=== PATIENT | female | born 1975 | race Hispanic/Latino ===

== ENCOUNTER 2021-08-30 10:26 | Emergency (ER) | payer SELFPAY ==
--- OUTSIDE RECORDS SUMMARY | 2021-08-30 10:29 | XMS REPORT | Continuity of Care Document ---
:1975 Author Organization [facility] t Address [address] [place] [address] Care Team Providers Name Role Phone PCP, PATIENT DOES NOT HAVE A Primary Care Physician UnavailCharles Broderick Attending Clinician Unavailable Antonio JARRELL S Attending Clinician Doctor Unassigned, Name Attending Clinician Unavailable Charles CAMACHO Attending Clinician Unavailable Charles AUSTIN Admitting Clinician Unavailable Payers Payer Name Policy Type Policy Number Effective Date Expiration Date S ource Problems Condition Condition Condition Status Onset Resolution Last Treating Co mments Source Name Details Category Date Date Treatment Clinician Date No known No known Disease Unive rs active active ity of problems problems [facility] Allergies, Adverse Reactions, Alerts Allergy Allergy Status Severity Reaction(s) Onset Inactive Treating Comm ents Source Name Type Date Date Clinician NO KNOWN Drug Active Univers ALLERGIE Class ity of S [facility] Social History Social Habit Start Date Stop Date Quantity Comments Source Exposure to Not sure [facility] SARS-CoV-2 (event) Medica l Branch Sex Assigned At [birth year] [facility] 00:00:00 00:00:00 [facility] Smoking Status Start Date Stop Date Source Unknown if ever smoked [facility] Medications Ordered Filled Start Stop Current Ordering Indication Dosage Frequency Signature Comments Components Source Medication Medication Date Date Medication? Clinician (SIG) Name Name levoFLOXaci 2020-09- No 500mg 500 mg, U nivers n 2-14 12-14 Oral, ity of (LEVAQUIN) 13:30: 12:38 ONCE, 1 Benny as tablet 500 00 :00 dose, On Medic al mg [facility] 08/16/21 at 0730, KENDAL
Re ason for Anti-Infec tive: Documented Infection< br>Documen twila Infection Site: Urine
D uration of Therapy: Other (see Comments) FENTanyl PF 2020-09- No 50ug 50 mcg, Un corie (SUBLIMAZE 2-14 -14 Slow IV ity o f (PF)) 09:22: 09:34 Push, [place] injection 00 :00 ONCE, 1 Medical 50 mcg dose, On Sun08/16/21 at 0330, STAT methocarbam 2020-09- No 500mg 500 mg, U nivers oL 2-14 -14 Oral, ONCE ity of (ROBAXIN) 09:22: 09:34 NOW, 1 [place] tablet 500 00 :00 dose, On Medic al mg [facility] 08/16/21 at 0330, Routine FENTanyl PF 2020-09- No 50ug 50 mcg, Un corie (SUBLIMAZE 2-14 -14 Slow IV ity o f (PF)) 08:15: 08:14 Push, [place] injection 00 :00 ONCE, 1 Medical 50 mcg dose, On [place] 08/16/21 at 0215, STAT ondansetron 2020-09- No 4mg 4 mg, Slow Univers (ZOFRAN -16 08- IV Push, ity of (PF)) 08:06: 08:09 ONCE, 1 [place] injection 4 00 :00 dose, On Medi nilda mg [facility] 08/16/21 at 0215, KENDAL levoFLOXaci 2020-09 Yes [id number] 500mg Take 1 Univers n 2-14 tablet by ity of (LEVAQUIN) 00:00: mouth [place] 500 mg 00 every 24 Medical tablet (twenty-fo Branch ur) hours. methocarbam 2020-09 Yes [id number] 750mg Take 1 Univers oL 750 mg 2-14 tablet by ity o f tablet 00:00: mouth [place] 00 every 6 Medical (six) Branch hours as needed for Pain (scale 7-10). naproxen 2020-09 Yes [id number] 550mg Take 1 U nivers sodium 550 2-14 tablet by ity of mg tablet 00:00: mouth 2 00 (two) Medical times Branch daily with meals. dicyclomine 0 Yes [id number] 20mg Take 1 Univers 20 mg 6-26 tablet by ity of tablet 00:00: mouth 4 (four) Medical times Branch daily as needed for Abdominal pain. dicyclomine 0 Yes [id number] 20mg Take 1 Univers 20 mg 6-26 tablet by ity of tablet 00:00: mouth 4 (four) Medical times Branch daily as needed for Abdominal pain. cyclobenzap Yes 5mg Take 1 Univ ers rine 5 mg 3-08 tablet by ity o f tablet 00:00: mouth 3 (three) Medical times Branch daily as needed for Muscle Spasms for up to 20 doses. ibuprofen Yes 400mg Take 2 Unive rs (MOTRIN IB) 3-08 tablets by it y of 200 mg 00:00: mouth [place] tablet 00 every 6 Medical (six) Branch hours as needed for Pain (scale 1-3) for up to 30 doses. cyclobenzap Yes 5mg Take 1 Univ ers rine 5 mg 3-08 tablet by ity o f tablet 00:00: mouth 3 (three) Medical times Branch daily as needed for Muscle Spasms for up to 20 doses. ibuprofen Yes 400mg Take 2 Unive rs (MOTRIN IB) 3-08 tablets by it y of 200 mg 00:00: mouth [place] tablet 00 every 6 Medical (six) Branch hours as needed for Pain (scale 1-3) for up to 30 doses. hydrocortis Yes 4[drp] Place 4 U nivers one-acetic 7-13 Drops in ity o f acid 00:00: left ear 4 [place] (VOSOL-HC) 00 (four) Medical 1-2 % otic times Branch drops daily. hydrocortis Yes 4[drp] Place 4 U nivers one-acetic 7-13 Drops in ity o f acid 00:00: left ear 4 [place] (VOSOL-HC) 00 (four) Medical 1-2 % otic times Branch drops daily. Immunizations Ordered Filled Immunization Date Status Comments Sourc e Immunization Name Name SARS-COV-2 COVID-19 2020-11-28 Completed Unive rsity of MODERNA VACCINE 00:00:00 [facility] SARS-COV-2 COVID-19 2020-11-28 Completed Unive rsity of MODERNA VACCINE 00:00:00 [facility] SARS-COV-2 COVID-19 2020-10-31 Completed Unive rsity of MODERNA VACCINE 00:00:00 [facility] SARS-COV-2 COVID-19 2020-10-31 Completed Unive rsity of MODERNA VACCINE 00:00:00 [facility] Vital Signs Vital Name Observation Time Observation Value Comments Source Systolic blood 2021-08-16 12:00:00 137 mm[Hg] Univer sity of pressure [facility] Diastolic blood 2021-08-16 12:00:00 81 mm[Hg] Unive rsity of pressure [facility] Heart rate 2021-08-16 12:00:00 81 /min [facility] Respiratory rate 2021-08-16 12:00:00 16 /min [facility] Oxygen saturation in 2021-08-16 12:00:00 97 /min [facility] Arterial blood by [facility] Pulse oximetry Branch Body temperature 2021-08-16 07:52:00 37.28 Lara [facility] Body height 2021-08-16 07:52:00 152.4 cm [facility] Body weight 2021-08-16 07:52:00 95.255 kg [facility] BMI 2021-08-16 07:52:00 41.01 kg/m2 [facility] Procedures Procedure Date / Time Performed Performing Clinician Sourc e URINALYSIS 2021-08-16 11:02:00 George Austin [facility] CT ABDOMEN PELVIS WO 2021-08-16 10:38:00 George Austin [facility] NOTICE OF PRIVACY 2021-08-16 07:43:59 Doctor Unassigned, No Univ [facility] PRACTICES Name Medical Branch CONSENT/REFUSAL FOR 2021-08-16 07:43:37 Doctor Unassigned, [facility] AND Name Medical Branch TREATMENT Encounters Start End Encounter Admission Attending Care Care Encounter Source Date/Time Date/Time Type Type Clinicians Facility Department ID 2021-08-16 2021-08-16 Emergency X ANTONIO [facility] ERT [id number] Univers 01:54:00 06:44:00 GEORGE ity [facility] 2021-08-16 2021-08-16 Emergency Parvinsuraj [facility] [id number] Univers 01:54:00 06:44:00 George LOVE [id number] ity of [place] [id number] [facility] [id number] [facility] 084 Branch 2021-08-16 2021-08-16 Orders Doctor KEV [id number] Univers 00:00:00 00:00:00 Only Unassigned, BUCK [id number] ity of [place] [facility] [id number] [facility] [id number] [facility] 009 Branch 2020-02-26 2020-02-26 Emergency X JANICE [facility] ERT [id number] Univers 23:22:53 23:22:53 YARITZA lord [facility] Results This patient has no known results.
[2021-08-30 13:23] LABS: SARS-COV-2 RT PCR POSITIVE (NEGATIVE)
--- NOTE | 2021-08-30 14:44 | EDPHYS ---
Physician Documentation [facility] Name: Tere Loving Age: 45 yrs Sex: Female : 1975 Arrival Date: 08/30/2021 Time: : Bed Waiting Private MD: ED Physician Historical: - Allergies: 08/30 11:31 No Known Allergies; [facility] - Home Meds: 11:31 None [Active]; [facility] - PMHx: 11:31 None; [facility] - Immunization history:: Adult Immunizations. - Social history:: Smoking status: Patient reports the use of cigarette tobacco products, denies chronic smoking, but will smoke occasionally. Vital Signs: 11:27 BP 156 / 102; Pulse 100; Resp 18; Temp 98.2; Pulse Ox 99% ; Weight 95.25 kg; Height 5 [facility] ft. 0 in. (152.40 cm); 11:27 Body Mass Index 41.01 (95.25 kg, 152.40 cm) [facility] MDM: 14:43 Patient medically screened. kb 08/30 10:58 Order name: Strep ll1 08/30 10:59 Order name: Group A Streptococcus Rapid Sc; Complete Time: 14:42 EDMS 08/30 11:52 Order name: COVID-19/FLU A+B (Document "Date of Onset" if Symptomatic) pm1 08/30 11:53 Order name: COVID-19/FLU A+B; Complete Time: 14:42 EDMS 08/30 13:14 Order name: Throat Culture EDMS Administered Medications: No medications were administered Disposition Summary: 08/30/21 14:51 Eloped Disposition: before being seen by provider [facility] Reason: wait time [facility] Signatures: Dispatcher [employer] EDMS Kierra Julian FNP-C FNP-Ckb Rees, Jessica RN RN [facility] Corrections: (The following items were deleted from the chart) 14:48 14:43 Home kb kb 14:48 14:43 Stable kb kb 14:48 14:43 Coronavirus infection, unspecified kb kb
--- NOTE | 2021-08-30 14:44 | ER ---
Nurse's Notes [facility] Name: Tere Loving Age: 45 yrs Sex: Female : 1975 Arrival Date: 08/30/2021 Time: : Bed Waiting Private MD: Diagnosis: Presentation: 08/30 11:27 Chief complaint: Patient states: flu like symptoms since Sunday; fever, cough, body jh5 aches, sore throat. Coronavirus screen: Vaccine status: Patient reports receiving the 2nd dose of the covid vaccine. Ebola Screen: Patient negative for fever greater than or equal to 101.5 degrees Fahrenheit, and additional compatible Ebola Virus Disease symptoms Patient denies exposure to infectious person. Patient denies travel to an Ebola-affected area in the 21 days before illness onset. Initial Sepsis Screen: Does the patient meet any 2 criteria? No. Patient's initial sepsis screen is negative. Does the patient have a suspected source of infection? No. Patient's initial sepsis screen is negative. Risk Assessment: Do you want to hurt yourself or someone else? Patient reports no desire to harm self or others. 11:27 Method Of Arrival: Ambulatory [facility] 11:27 Acuity: DONOVAN 3 [facility] Triage Assessment: 11:32 General: Appears in no apparent distress. uncomfortable, obese, Behavior is calm, 5 cooperative, appropriate for age. Historical: - Allergies: 11:31 No Known Allergies; [facility] - Home Meds: 11:31 None [Active]; [facility] - PMHx: 11:31 None; [facility] - Immunization history:: Adult Immunizations. - Social history:: Smoking status: Patient reports the use of cigarette tobacco products, denies chronic smoking, but will smoke occasionally. Screenin:32 Abuse screen: Denies threats or abuse. Denies injuries from another. Nutritional [facility] screening: No deficits noted. Tuberculosis screening: Vital Signs: 11:27 BP 156 / 102; Pulse 100; Resp 18; Temp 98.2; Pulse Ox 99% ; Weight 95.25 kg; Height 5 [facility] ft. 0 in. (152.40 cm); 11:27 Body Mass Index 41.01 (95.25 kg, 152.40 cm) [facility] ED Course: :28 Patient arrived in ED. mr 11:31 Triage completed. jh5 11:32 Arm band placed on right wrist. 5 14:51 Patient's name was called from ER lobby. No response. Unable to locate patient. Will jh5 disposition as left without being seen by a provider. Administered Medications: No medications were administered Outcome: 14:43 Discharge ordered by . kb 14:52 Patient left the ED. 5 Signatures: Kierra Julian, RAUL RAO-Elissa Gipson Jessica RN RN [facility]
[2021-08-30 14:56] VITALS: BP 156/102; TEMP 98.2; O2SAT 99
[2021-08-30 22:21] LABS: SARS-COV-2 RT PCR POSITIVE (NEGATIVE)
== END 2021-08-30 14:52 | disposition left against medical advice (07) ==
LOC: ER 10:26
DX: R50.9 Fever, unspecified (principal)
CPT/HCPCS: 0240U; 87070; 87081; 99281

== ENCOUNTER 2021-08-31 03:09 | Emergency (ER) | payer SELFPAY ==
--- OUTSIDE RECORDS SUMMARY | 2021-08-31 03:11 | XMS REPORT | Continuity of Care Document ---
:1975 Author Organization [facility] t Address [address] [place] [address] Care Team Providers Name Role Phone PCP, [...] rs active active ity of problems problems [facility] Allergies, Adverse Reactions, Alerts Allergy Allergy Status Severity Reaction(s) Onset Inactive Treating Comm ents Source Name Type Date Date Clinician NO KNOWN Drug Active Univers ALLERGIE Class ity of S [facility] Social History Social Habit Start Date Stop Date Quantity Comments Source Exposure to Not sure [facility] SARS-CoV-2 (event) Medica l Branch Sex Assigned At [address] [facility] 00:00:00 00:00:00 [facility] Smoking Status Start Date Stop Date Source Unknown if ever smoked [facility] Medications Ordered Filled Start Stop Current Ordering Indication Dosage Frequency Signature Comments Components Source Medication Medication Date Date Medication? Clinician (SIG) Name Name levoFLOXaci 2020-09- No 500mg 500 mg, U nivers n 2-14 12-14 Oral, ity of (LEVAQUIN) 13:30: 12:38 ONCE, 1 Benny as tablet 500 00 :00 dose, On Medic al mg [facility] 08/16/21 at 0730, KENDAL
Re ason for [...] 00 :00 dose, On Medic al mg [facility] 08/16/21 at 0330, Routine FENTanyl PF 2020-09- No 50ug 50 mcg, Un corie (SUBLIMAZE 2-14 -14 Slow IV ity o f (PF)) 08:15: 08:14 Push, [place] injection 00 :00 ONCE, 1 Medical 50 mcg dose, On [place] 08/16/21 at 0215, STAT ondansetron 2020-09- No 4mg 4 mg, Slow Univers (ZOFRAN -16 08- IV Push, ity of (PF)) 08:06: 08:09 ONCE, 1 [place] injection 4 00 :00 dose, On Medi nilda mg [facility] 08/16/21 at 0215, KENDAL levoFLOXaci 2020-09 Yes [id number] 500mg Take 1 Univers n 2-14 tablet by ity of (LEVAQUIN) 00:00: mouth [place] 500 mg 00 every 24 Medical tablet (twenty-fo Branch ur) hours. methocarbam 2020-09 Yes [id number] 750mg Take 1 Univers oL 750 mg 2-14 tablet by ity o f tablet 00:00: mouth [place] 00 every 6 Medical (six) Branch hours as needed for Pain (scale 7-10). naproxen 2020-09 Yes [id number] 550mg Take 1 U nivers sodium 550 2-14 tablet by ity of mg tablet 00:00: mouth 2 00 (two) Medical times Branch daily with meals. dicyclomine 0 Yes [id number] 20mg Take 1 Univers 20 mg 6-26 tablet by ity of tablet 00:00: mouth 4 (four) Medical times Branch daily as needed for Abdominal pain. dicyclomine 0 Yes [id number] 20mg Take 1 Univers 20 mg 6-26 [...] Completed Unive rsity of MODERNA VACCINE 00:00:00 [facility] SARS-COV-2 COVID-19 2020-11-28 Completed Unive rsity of MODERNA VACCINE 00:00:00 [facility] SARS-COV-2 COVID-19 2020-10-31 Completed Unive rsity of MODERNA VACCINE 00:00:00 [facility] SARS-COV-2 COVID-19 2020-10-31 Completed Unive rsity of MODERNA VACCINE 00:00:00 [facility] Vital Signs Vital Name Observation Time Observation Value Comments Source Systolic blood 2021-08-16 12:00:00 137 mm[Hg] Univer sity of pressure [facility] Diastolic blood 2021-08-16 12:00:00 81 mm[Hg] Unive rsity of pressure [facility] Heart rate 2021-08-16 12:00:00 81 /min [facility] Respiratory rate 2021-08-16 12:00:00 16 /min [facility] Oxygen saturation in 2021-08-16 12:00:00 97 /min [facility] Arterial blood by [facility] Pulse oximetry Branch Body temperature 2021-08-16 07:52:00 37.28 Lara [facility] Body height 2021-08-16 07:52:00 152.4 cm [facility] Body weight 2021-08-16 07:52:00 95.255 kg [facility] BMI 2021-08-16 07:52:00 41.01 kg/m2 [facility] Procedures Procedure Date / Time Performed Performing Clinician Sourc e URINALYSIS 2021-08-16 11:02:00 George Austin [facility] CT ABDOMEN PELVIS WO 2021-08-16 10:38:00 George Austin [facility] NOTICE OF PRIVACY 2021-08-16 07:43:59 Doctor Unassigned, No Univ [facility] PRACTICES Name Medical Branch CONSENT/REFUSAL FOR 2021-08-16 07:43:37 Doctor Unassigned, No [facility] DIAGNOSIS AND Name Medical Branch TREATMENT Encounters Start End Encounter Admission Attending Care Care Encounter Source Date/Time Date/Time Type Type Clinicians Facility Department ID 2021-08-16 2021-08-16 Emergency X ANTONIO [facility] ERT [id number] Univers 01:54:00 06:44:00 GEORGE ity [facility] 2021-08-16 2021-08-16 Emergency Parvinsuraj [facility] [id number] Univers 01:54:00 06:44:00 George LOVE [id number] ity of [place] [id number] [facility] [id number] [facility] 084 Branch 2021-08-16 2021-08-16 Orders Doctor KEV [id number] Univers 00:00:00 00:00:00 Only Unassigned, BUCK [id number] ity of [place] [facility] [id number] [facility] [id number] [facility] 009 Branch 2020-02-26 2020-02-26 Emergency X JANICE [facility] ERT [id number] Univers 23:22:53 23:22:53 YARITZA lord [facility] Results This patient has no known results.
--- NOTE | 2021-08-31 06:50 | ER ---
Nurse's Notes [facility] Name: Tere Loving Age: 45 yrs Sex: Female : 1975 Arrival Date: 08/31/2021 Time: 03:20 Bed 18 Private MD: Diagnosis: Acute pharyngitis, unspecified;SARS-associated coronavirus as the cause of diseases classified elsewhere Presentation: 08/31 03:39 Chief complaint: Patient states: was seen here yesterday and eloped but is back today bb for throat pain x 1 week pt is Covid positive. Coronavirus screen: Client reports previous positive COVID test result. Ebola Screen: No symptoms or risks identified at this time. Initial Sepsis Screen: Does the patient meet any 2 criteria? No. Patient's initial sepsis screen is negative. Does the patient have a suspected source of infection? No. Patient's initial sepsis screen is negative. Risk Assessment: Do you want to hurt yourself or someone else? Patient reports no desire to harm self or others. Onset of symptoms was August 26, 2021. 03:39 Method Of Arrival: Ambulatory bb 03:39 Acuity: DONOVAN 4 bb Triage Assessment: 03:41 General: Appears in no apparent distress. uncomfortable, Behavior is calm, cooperative. bb Pain: Complains of pain in throat. EENT: Reports pain in throat. Neuro: Level of Consciousness is awake, alert, obeys commands, Oriented to person, place, time, situation. Cardiovascular: Capillary refill < 3 seconds Patient's skin is warm and dry. Respiratory: Respiratory effort is even, unlabored, Respiratory pattern is regular. GI: No signs and/or symptoms were reported involving the gastrointestinal system. Derm: Skin is pink, warm \T\ dry. Musculoskeletal: Circulation, motion, and sensation intact. 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 Assessment: 07:13 Reassessment: The patient was prescribed lortab liquid. The med was held because she is sv1 driving. The patient is her family to drive her home. . Vital Signs: 03:39 BP 165 / 94; Pulse 93; Resp 18 S; Temp 98.1(O); Pulse Ox 100% on R/A; Weight 95.25 kg bb (R); Height 5 ft. 0 in. (152.40 cm) (R); Pain 10/10; 07:02 BP 142 / 115; Pulse 83; Resp 18; Pulse Ox 97% 0 lpm ; sv1 03:39 Body Mass Index 41.01 (95.25 kg, 152.40 cm) bb ED Course: 03:20 Patient arrived in ED. ja2 03:41 Triage completed. bb 03:41 Arm band placed on Patient placed in waiting room, Patient notified of wait time. bb 06:32 Tom Hayes PA is PHCP. cp 06:32 Jonathan Weaver MD is Attending Physician. cp 07:02 Roberto Lo, UDAY is Primary Nurse. sv1 08:02 Patient has correct armband on for positive identification. jl7 08:02 No provider procedures requiring assistance completed. Patient did not have IV access jl7 during this emergency room visit. Administered Medications: 07:12 Drug: Decadron (dexamethasone) 10 mg Route: IM; Site: right deltoid; sv1 07:38 Follow up: Response: No adverse reaction jg9 08:01 Drug: Lortab Liquid 15 ml Route: PO; jl7 08:02 Follow up: Response: Medication administered at discharge. jl7 Outcome: 06:49 Discharge ordered by . cp 08:02 Discharged to home ambulatory, with family. jl7 08:02 Condition: stable 08:02 Discharge instructions given to patient, Instructed on discharge instructions, follow up and referral plans. medication usage, Demonstrated understanding of instructions, follow-up care, medications, Prescriptions given X 3. 08:03 Patient left the ED. jl7 Signatures: Faby Lawrence RN RN bb Page, Corey, PA PA cp Leal, Jahala, RN RN jl7 Priya Gar Jennifer jg9 Roberto Lo, UDAY RN sv1
--- NOTE | 2021-08-31 06:50 | EDPHYS ---
Physician Documentation [facility] Name: Tere Loving Age: 45 yrs Sex: Female : 1975 Arrival Date: 08/31/2021 Time: 03:20 Bed 18 Private MD: ED Physician Jonathan Weaver HPI: 08/31 06:40 This 45 yrs old Female presents to ER via Ambulatory with complaints of Pain. cp 06:40 The patient presents with sore throat. cp 06:40 The patient describes throat pain as constant. Onset: The symptoms/episode cp began/occurred 1 week(s) ago. 06:40 Associated signs and symptoms: Pertinent positives: cough, Sore throat Pertinent cp negatives fever. 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 ROS: 06:40 ENT: Positive for ear pain, sore throat, Negative for drainage from ear(s), difficulty cp swallowing, difficulty handling secretions. 06:40 Cardiovascular: Negative for chest pain, edema, palpitations. 06:40 Respiratory: Positive for cough, with no reported sputum. 06:40 Abdomen/GI: Negative for abdominal pain, nausea, vomiting, and diarrhea. 06:40 Neuro: Negative for altered mental status, headache, weakness. Exam: 06:42 Head/Face: Normocephalic, atraumatic. cp 06:42 Constitutional: The patient appears in no acute distress, alert, awake, non-toxic, well developed, well nourished. 06:42 Eyes: Periorbital structures: appear normal, Conjunctiva: normal, no exudate, no injection, Sclera: no appreciated abnormality, Lids and lashes: appear normal, bilaterally. 06:42 ENT: External ear(s): are unremarkable, Ear canal(s): are normal, clear, TM's: bulging, on the left, dullness, bilaterally, Nose: is normal, Mouth: Lips: moist, Oral mucosa: moist, Posterior pharynx: Airway: no evidence of obstruction, patent, Tonsils: with erythema, no enlargement, no exudate, Uvula: midline, erythema, that is moderate, exudate, is not appreciated, Voice: is normal. 06:42 Neck: ROM/movement: is normal, is supple, no meningismus, no nuchal rigidity. 06:42 Chest/axilla: Inspection: normal. 06:42 Cardiovascular: Rate: normal. 06:42 Respiratory: the patient does not display signs of respiratory distress, Respirations: normal, no use of accessory muscles, no retractions, labored breathing, is not present, Breath sounds: are clear throughout, no decreased breath sounds, no stridor, no wheezing. Vital Signs: 03:39 BP 165 / 94; Pulse 93; Resp 18 S; Temp 98.1(O); Pulse Ox 100% on R/A; Weight 95.25 kg bb (R); Height 5 ft. 0 in. (152.40 cm) (R); Pain 10/10; 07:02 BP 142 / 115; Pulse 83; Resp 18; Pulse Ox 97% 0 lpm ; sv1 03:39 Body Mass Index 41.01 (95.25 kg, 152.40 cm) bb MDM: 06:45 Patient medically screened. cp 06:47 Differential diagnosis: bronchitis, group A strep tonsillitis, peritonsillar abscess cp pharyngitis, retropharyngeal abcess tonsillitis, uvulitis, viral syndrome. 06:49 Data reviewed: vital signs, nurses notes. cp 06:49 Counseling: I had a detailed discussion with the patient and/or guardian regarding: the cp historical points, exam findings, and any diagnostic results supporting the discharge/admit diagnosis, lab results, to return to the emergency department if symptoms worsen or persist or if there are any questions or concerns that arise at home. ED course: VS noted. Patient appears non-toxic and no signs of respiratory distress. Will discharge to home for continued monitoring. Administered Medications: 07:12 Drug: Decadron (dexamethasone) 10 mg Route: IM; Site: right deltoid; sv1 07:38 Follow up: Response: No adverse reaction [id number] 08:01 Drug: Lortab Liquid 15 ml Route: PO; jl7 08:02 Follow up: Response: Medication administered at discharge. [email or web address] Disposition: 07:00 Chart complete. cp Disposition Summary: 08/31/21 06:49 Discharge Ordered Location: Home cp Problem: new cp Symptoms: have improved cp Condition: Stable cp Diagnosis - Acute pharyngitis, unspecified cp - SARS-associated coronavirus as the cause of diseases classified elsewhere cp Followup: cp - With: Private Physician - When: 1 - 2 days - Reason: Worsening of condition Discharge Instructions: - Discharge Summary Sheet cp - Pharyngitis cp - COVID-19 cp - Things to Know about the COVID-19 Pandemic - [facility] [place] cp - 10 Things You Can Do to Manage Your COVID-19 Symptoms at Home - [facility] [place] cp - COVID-19: Quarantine vs. Isolation - [facility] [place] cp - Prevent the Spread of COVID-19 if You Are Sick - [facility] [place] cp Forms: - Medication Reconciliation Form cp - Thank You Letter cp - Antibiotic Education cp - Prescription Opioid Use cp Prescriptions: - Augmentin 875-125 mg Oral Tablet - take 1 tablet by ORAL route every 12 hours for 10 days; 20 tablet; Refills: 0, cp Product Selection Permitted - Tessalon Perles 100 mg Oral Capsule - take 1 capsule by ORAL route every 8 hours As needed; 2 capsule; Refills: 0, cp Product Selection Permitted - Lidocaine Viscous - take 5 milliliter by ORAL route every 4-6 hours As needed; 1 bottle; Refills: cp 0, Product Selection Permitted Addendum: 09/01/2021 20:29 Co-signature as Attending Physician, Jonathan Weaver MD. [facility] Signatures: Dispatcher [employer] EDMS Faby Lawrence RN RN bb Page, Corey, PA PA cp Nando Lennon RN RN [email or web address] Jonathan Weaver MD MD 7 Roberto Lo RN RN sv1 Corazon Delgado [email or web address] Corrections: (The following items were deleted from the chart) 08/31 06:42 06:40 Group A Streptococcus Rapid Sc ordered. EDMD EDMS
[2021-08-31] MEDS ORDERED: HYDROCOD 2.5mg-ACETAMIN 108mg/5mL Soln ONE ×2 (07:09→07:55)
[2021-08-31] MEDS ORDERED: dexAMETHasone 10 MG/ML VIAL ONE (07:09)
[2021-08-31 08:07] VITALS: TEMP 98.1
[2021-08-31 08:09] VITALS: BP 142/115; O2SAT 97
== END 2021-08-31 08:03 | disposition home or self-care (01) ==
LOC: ER 03:09
DX: U07.1 COVID-19 (principal); J02.9 Acute pharyngitis, unspecified
CPT/HCPCS: 96372; 99283; J1100

== ENCOUNTER 2024-06-09 20:45 | Emergency (ER) | payer SELFPAY ==
--- OUTSIDE RECORDS SUMMARY | 2024-06-09 20:50 | XMS REPORT | Continuity of Care Document ---
Author Name Unknown Address [address] [facility] [address] [place] [address] [facility] thconnect Address [address] [facility] [address] [place] [address] Care Team Providers Care Window Decorator Name Role Phone Becca Gutierrez Primary Care Physician [phone] BECCA HENRY Attending Clinician Unavailable LUCAS RIVERA Attending Clinician Unavailable LUCAS RIVERA Attending Clinician Unavailable Becca Gutierrez Attending Clinician [phone] Trinidad Jean Attending Clinician Unavailcandice garcia Doctor Unassigned, [place] Attending Clinician U navailable Lab, Ang - Db Attending Clinician Unavailable [facility] Attending Clinician Unavailable Cookie Bower MD Attending Clinician [phone] COOKIE BOWER Attending Clinician Unavailable COOKIE BOWER Attending Clinician Unavailable Pgy3 Attending Clinician Unavailable Pgy4 Attending Clinician Unavailable Susan Young Attending Clinician [phone] Becca Gutierrez Attending Clinician [phone] Trinidad Jean Attending Clinician UnavailRosa Maria Stephens RN Attending Clinician Unavailab DEBRA Brizuela Attending Clinician Unavailable Lab, Ang - Db Attending Clinician Unavailable Elissa Maldonado RN Attending Clinician [phone] SHAUN ESCOBAR Attending Clinician Unavailable Kate East Attending Clinician ARCADIO GEE Attending Clinician Patrizia vailable Doctor Unassigned, [place] Attending Clinician U navailable [facility] Attending Clinician Unavailable Polly Michel MD Attending Clinician POLLY MICHEL Attending Clinician Unavailable Pgy4 Attending Clinician Unavailable Margarita Tuttle Attending Clinician U navailable TADEO CASTRO Attending Clinician Unavail able Matthew WHTadeo SILVA Attending Clinician + Tammie Mcbride LVN Attending Clinician VILMA ESPINOZA Attending Clinician Unavaila Vilma Davis Attending Clinician [phone] Jessie Burch RN Attending Clinician [phone] CHERISE IVY Attending Clinician Unavailab Cherise Alvarez DO Attending Clinician [phone] GEORGE ALVAREZ Attending Clinician Unavailable George Alvarez MD Attending Clinician [phone] YARITZA CAMACHO Attending Clinician Unavailable TADEO CASTRO Admitting Clinician Unavail able GEORGE ALVAREZ Admitting Clinician Unavailable Payers Payer Name Policy Type Policy Number Effective Date Expirati on Date Source Problems Condition Name Condition Details Condition Category Status Onset Date Resolution Date Last Treatment Date Treating Clinician Comments Source Family history of rheumatoid arthritis Family history of rheumatoid arthritis Disease Active 05-01 00:00: 00 [facility] Polyarthra lgia Polyarthra lgia Disease Active 05-01 00:00: 00 [facility] Dysmenorrh ea, unspecifie d Dysmenorrh ea, unspecifie d Disease Active 2022-09 00:00: 00 [facility] Excessive or frequent menstruati on Excessive or frequent menstruati on Disease Active 2022-09 00:00: 00 [facility] Fibroid, uterine Fibroid, uterine Disease Active 2022-09 00:00: 00 [facility] HTN (hypertens ion) HTN (hypertens ion) Disease Active 2022-09 00:00: 00 [facility] Personal history of unspecifie d digestive disease Personal history of unspecifie d digestive disease Disease Active 2022-09 00:00: 00 [facility] Type 2 diabetes mellitus without complicati ons Type 2 diabetes mellitus without complicati ons Disease Active 2022-09 00:00: 00 [facility] Morbid obesity Morbid obesity Disease Active 2022-09 00:00: 00 [facility] Iron deficiency anemia, unspecifie d Iron deficiency anemia, unspecifie d Disease Active 2022-09 00:00: 00 [facility] No known active problems No known active problems Disease [facility] Allergies, Adverse Reactions, Alerts Allergy Name Allergy Type Status Severity Reaction(s) Onset Date Inactive Date Treating Clinician Comments Source NO KNOWN ALLERGIE S Drug Class Active [facility] Social History Social Habit Start Date Stop Date Quantity Comments Source Exposure to SARS-CoV-2 (event) Not sure [facility] History of tobacco use Cigarette Smoker [facility] Alcoholic beverage intake 2024-05-01 00:00:00 2024-05-01 00:00:00 Ex-drinker (finding) [facility] Tobacco use and exposure 2024-02-14 00:00:00 2024-02-14 00:00:00 Smokeless tobacco non-user [facility] Alcohol intake 2023-12-27 00:00:00 2023-12-27 00:00:00 Ex-drinker (finding) [facility] History of Social function 2023-11-06 00:00:00 2023-11-06 00:00:00 [facility] Sex assigned at 1975 00:00:00 1975 00:00:00 [facility] Smoking Status Start Date Stop Date Source Tobacco smoking consumption unknown [facility] Ex-smoker 2024-02-14 00:00:00 2024-02-14 00:00:00 [facility] Never smoked tobacco [facility] Medications Ordered Medication Name Filled Medication Name Start Date Stop Date Current Medication? Ordering Clinician Indication Dosage Frequency Signature (SIG) Comments Components Source naproxen 500 mg tablet 2023-09 0 00:00: 00 Yes [id number] 9101 500mg Take 1 tablet by mouth 2 (two) times daily as needed for Pain (scale 4-6). [facility] metFORMIN 500 mg tablet 9-19 00:00: 00 Yes [id number] 500mg Take 1 tablet by mouth in the morning and 1 tablet in the evening. Take with meals. [facility] losartan 100 mg tablet 05-01 00:00: 00 Yes [id number] 100mg Take 1 tablet by mouth in the morning. [facility] naproxen 500 mg tablet 05-01 00:00: 00 06-03 00:00 :00 No [id number] 9101 500mg Take 1 tablet by mouth 2 (two) times daily as needed for Pain (scale 4-6). [facility] methylPREDN ISolone 4 mg tablets 05-01 00:00: 00 05-08 04:59 :00 No [id number] 9101 Take by mouth SEE-INSTRU CTIONS for 6 days. follow package directions [facility] levonorgest reL (MIRENA) IUD 1 Device 04-22 22:30: 00 04-22 21:44 :00 No [id number] 1{devic e} 1 Device, Intrauteri ne, ONCE, 1 dose, On Sun04/22/24 at 1730, Routine [facility] traZODone 50 mg tablet 7- 00:00: 00 Yes [id number] 75mg Take 1.5 tablets by mouth at bedtime. [facility] gabapentin 100 mg capsule 6-13 00:00: 00 Yes [id number] 2 100mg Take 1 capsule by mouth in the morning and 1 capsule at noon and 1 capsule in the evening. [facility] metFORMIN 500 mg tablet 6-04 00:00: 00 05-22 00:00 :00 No [id number] 500mg Take 1 tablet by mouth in the morning and 1 tablet in the evening. Take with meals. [facility] rosuvastati n 10 mg tablet 6-03 00:00: 00 Yes [id number] 10mg Take 1 tablet by mouth at bedtime. [facility] losartan 100 mg tablet 5 00:00: 00 04-29 00:00 :00 No [id number] 100mg Take 1 tablet by mouth in the morning. [facility] SERTraline (ZOLOFT) 100 mg tablet 25 00:00: 00 Yes [id number] 100mg Take 1 tablet by mouth in the morning. [facility] traZODone 50 mg tablet 12-26 00:00: 00 03-26 00:00 :00 No [id number] 75mg Take 1.5 tablets by mouth at bedtime. [facility] traZODone 50 mg tablet 11-28 00:00: 00 Yes [id number] 50mg Take 1 tablet by mouth at bedtime as needed for Insomnia. [facility] SERTraline (ZOLOFT) 50 mg tablet 11-28 00:00: 00 12-26 00:00 :00 No [id number] 50mg Take 1 tablet by mouth in the morning. [facility] metFORMIN 500 mg tablet 18 00:00: 00 02-04 00:00 :00 No [id number] 500mg Take 1 tablet by mouth in the morning and 1 tablet in the evening. Take with meals. [facility] rosuvastati n 10 mg tablet 11-07 00:00: 00 02-01 00:00 :00 No [id number] 10mg Take 1 tablet by mouth at bedtime. [facility] medroxyPROG ESTERone (DEPO-PROVE RA) injection 150 mg 3-05 21:15: 00 04-22 21:44 :53 No [id number] 100 150mg [facility] losartan 100 mg tablet 10-11 00:00: 00 Yes [id number] 100mg Take 1 tablet by mouth in the morning. [facility] losartan 50 mg tablet 09-13 00:00: 00 10-11 00:00 :00 No [id number] 75mg Take 1.5 tablets by mouth in the morning. [facility] rosuvastati n 10 mg CpSP 2022-09 08:29: 56 08-16 00:00 :00 No [id number] Take by mouth. [facility] metFORMIN 500 mg tablet 2022-09 09:08: 29 08-09 00:00 :00 No 500mg Take 1 tablet by mouth in the morning and 1 tablet in the evening. Take with meals. [facility] rosuvastati n 10 mg CpSP 2022-09 08:29: 52 Yes [id number] Take by mouth. [facility] metFORMIN 500 mg tablet 2022-09 00:00: 00 11-18 00:00 :00 No [id number] 500mg Take 1 tablet by mouth in the morning and 1 tablet in the evening. Take with meals. [facility] rosuvastati n 10 mg tablet 2022-09 00:00: 00 11-07 00:00 :00 No [id number] 10mg Take 1 tablet by mouth at bedtime. [facility] losartan 50 mg tablet 2022-09 00:00: 00 09-13 00:00 :00 No [id number] 50mg Take 1 tablet by mouth in the morning. [facility] levoFLOXaci n (LEVAQUIN) tablet 500 mg 2020-09 13:30: 00 08-16 12:38 :00 No 500mg 500 mg, Oral, ONCE, 1 dose, On Sun08/16/21 at 0730, KENDAL
Re ason for Anti-Infec tive: Documented Infection< br>Documen twila Infection Site: Urine
D uration of Therapy: Other (see Comments) [facility] FENTanyl PF (SUBLIMAZE (PF)) injection 50 mcg 2020-09 09:22: 00 08-16 09:34 :00 No 50ug 50 mcg, Slow IV Push, ONCE, 1 dose, On Sun08/16/21 at 0330, STAT [facility] methocarbam oL (ROBAXIN) tablet 500 mg 2020-09 09:22: 00 08-16 09:34 :00 No 500mg 500 mg, Oral, ONCE NOW, 1 dose, On Sun08/16/21 at 0330, Routine [facility] FENTanyl PF (SUBLIMAZE (PF)) injection 50 mcg 2020-09 08:15: 00 08-16 08:14 :00 No 50ug 50 mcg, Slow IV Push, ONCE, 1 dose, On Sun08/16/21 at 0215, STAT [facility] ondansetron (ZOFRAN (PF)) injection 4 mg 2020-09 08:06: 00 08-16 08:09 :00 No 4mg 4 mg, Slow IV Push, ONCE, 1 dose, On Sun08/16/21 at 0215, KENDAL [facility] levoFLOXaci n (LEVAQUIN) 500 mg tablet 2020-09 00:00: 00 08-16 00:00 :00 No [id number] 500mg Take 1 tablet by mouth every 24 (twenty-fo ur) hours. [facility] methocarbam oL 750 mg tablet 2020-09 00:00: 00 08-16 00:00 :00 No [id number] 750mg Take 1 tablet by mouth every 6 (six) hours as needed for Pain (scale 7-10). [facility] naproxen sodium 550 mg tablet 2020-09 00:00: 00 08-16 00:00 :00 No [id number] 550mg Take 1 tablet by mouth 2 (two) times daily with meals. [facility] dicyclomine 20 mg tablet 02-26 00:00: 00 08-16 00:00 :00 No [id number] 20mg Take 1 tablet by mouth 4 (four) times daily as needed for Abdominal pain. [facility] ibuprofen (MOTRIN IB) 200 mg tablet 11-08 00:00: 00 08-16 00:00 :00 No 400mg Take 2 tablets by mouth every 6 (six) hours as needed for Pain (scale 1-3) for up to 30 doses. [facility] cyclobenzap rine 5 mg tablet 11-08 00:00: 00 08-16 00:00 :00 No 5mg Take 1 tablet by mouth 3 (three) times daily as needed for Muscle Spasms for up to 20 doses. [facility] hydrocortis one-acetic acid (VOSOL-HC) 1-2 % otic drops 03-15 00:00: 00 08-16 00:00 :00 No 4[drp] Place 4 Drops in left ear 4 (four) times daily. [facility] Immunizations Ordered Immunization Name Filled Immunization Name Date Status Comments Source Influenza Virus Vaccine Quad IM, Preserv and ABX Free 6 MO-64 YRS (FLUCELVAX) 2023-08-10 00:00:00 Completed [facility] TDAP 2023-08-10 00:00:00 Completed SARS-COV-2 COVID-19 MODERNA VACCINE 2020-11-28 00:00:00 Completed [facility] SARS-COV-2 COVID-19 MODERNA 12+ YRS VACCINE 2020-11-28 00:00:00 Completed SARS-COV-2 COVID-19 MODERNA VACCINE 2020-11-28 00:00:00 Completed [facility] SARS-COV-2 COVID-19 MODERNA VACCINE 2020-10-31 00:00:00 Completed [facility] SARS-COV-2 COVID-19 MODERNA 12+ YRS VACCINE 2020-10-31 00:00:00 Completed [facility] SARS-COV-2 COVID-19 MODERNA VACCINE 2020-10-31 00:00:00 Completed [facility] SARS-COV-2 COVID-19 MODERNA 12+ YRS VACCINE Unknown Completed [facility] Influenza Virus Vaccine Quad IM, Preserv and ABX Free 6 MO-64 YRS (FLUCELVAX) Unknown Completed [facility] TDAP Unknown Completed [facility] SARS-COV-2 COVID-19 MODERNA 12+ YRS VACCINE Unknown Completed [facility] Influenza Virus Vaccine Quad IM, Preserv and ABX Free 6 MO-64 YRS (FLUCELVAX) Unknown Completed [facility] TDAP Unknown Completed [facility] Influenza Virus Vaccine Quad IM, Preserv and ABX Free 6 MO-64 YRS (FLUCELVAX) Unknown Completed [facility] TDAP Unknown Completed [facility] Influenza Virus Vaccine Quad IM, Preserv and ABX Free 6 MO-64 YRS (FLUCELVAX) Unknown Completed [facility] TDAP Unknown Completed [facility] SARS-COV-2 COVID-19 MODERNA 12+ YRS VACCINE Unknown Completed [facility] SARS-COV-2 COVID-19 MODERNA 12+ YRS VACCINE Unknown Completed [facility] SARS-COV-2 COVID-19 MODERNA 12+ YRS VACCINE Unknown Completed [facility] Influenza Virus Vaccine Quad IM, Preserv and ABX Free 6 MO-64 YRS (FLUCELVAX) Unknown Completed [facility] TDAP Unknown Completed [facility] SARS-COV-2 COVID-19 MODERNA 12+ YRS VACCINE Unknown Completed [facility] Influenza Virus Vaccine Quad IM, Preserv and ABX Free 6 MO-64 YRS (FLUCELVAX) Unknown Completed [facility] TDAP Unknown Completed [facility] SARS-COV-2 COVID-19 MODERNA 12+ YRS VACCINE Unknown Completed [facility] Influenza Virus Vaccine Quad IM, Preserv and ABX Free 6 MO-64 YRS (FLUCELVAX) Unknown Completed [facility] TDAP Unknown Completed [facility] SARS-COV-2 COVID-19 MODERNA 12+ YRS VACCINE Unknown Completed [facility] Influenza Virus Vaccine Quad IM, Preserv and ABX Free 6 MO-64 YRS (FLUCELVAX) Unknown Completed [facility] TDAP Unknown Completed [facility] SARS-COV-2 COVID-19 MODERNA 12+ YRS VACCINE Unknown Completed [facility] Influenza Virus Vaccine Quad IM, Preserv and ABX Free 6 MO-64 YRS (FLUCELVAX) Unknown Completed [facility] TDAP Unknown Completed [facility] SARS-COV-2 COVID-19 MODERNA 12+ YRS VACCINE Unknown Completed [facility] Influenza Virus Vaccine Quad IM, Preserv and ABX Free 6 MO-64 YRS (FLUCELVAX) Unknown Completed [facility] TDAP Unknown Completed [facility] SARS-COV-2 COVID-19 MODERNA 12+ YRS VACCINE Unknown Completed [facility] Influenza Virus Vaccine Quad IM, Preserv and ABX Free 6 MO-64 YRS (FLUCELVAX) Unknown Completed [facility] TDAP Unknown Completed [facility] SARS-COV-2 COVID-19 MODERNA 12+ YRS VACCINE Unknown Completed [facility] Influenza Virus Vaccine Quad IM, Preserv and ABX Free 6 MO-64 YRS (FLUCELVAX) Unknown Completed [facility] TDAP Unknown Completed [facility] SARS-COV-2 COVID-19 MODERNA 12+ YRS VACCINE Unknown Completed [facility] Influenza Virus Vaccine Quad IM, Preserv and ABX Free 6 MO-64 YRS (FLUCELVAX) Unknown Completed [facility] TDAP Unknown Completed [facility] SARS-COV-2 COVID-19 MODERNA 12+ YRS VACCINE Unknown Completed [facility] Influenza Virus Vaccine Quad IM, Preserv and ABX Free 6 MO-64 YRS (FLUCELVAX) Unknown Completed [facility] TDAP Unknown Completed [facility] SARS-COV-2 COVID-19 MODERNA 12+ YRS VACCINE Unknown Completed [facility] Influenza Virus Vaccine Quad IM, Preserv and ABX Free 6 MO-64 YRS (FLUCELVAX) Unknown Completed [facility] TDAP Unknown Completed [facility] SARS-COV-2 COVID-19 MODERNA 12+ YRS VACCINE Unknown Completed [facility] Influenza Virus Vaccine Quad IM, Preserv and ABX Free 6 MO-64 YRS (FLUCELVAX) Unknown Completed [facility] TDAP Unknown Completed [facility] SARS-COV-2 COVID-19 MODERNA 12+ YRS VACCINE Unknown Completed [facility] Influenza Virus Vaccine Quad IM, Preserv and ABX Free 6 MO-64 YRS (FLUCELVAX) Unknown Completed [facility] TDAP Unknown Completed [facility] SARS-COV-2 COVID-19 MODERNA 12+ YRS VACCINE Unknown Completed [facility] Influenza Virus Vaccine Quad IM, Preserv and ABX Free 6 MO-64 YRS (FLUCELVAX) Unknown Completed [facility] TDAP Unknown Completed [facility] SARS-COV-2 COVID-19 MODERNA 12+ YRS VACCINE Unknown Completed [facility] Influenza Virus Vaccine Quad IM, Preserv and ABX Free 6 MO-64 YRS (FLUCELVAX) Unknown Completed [facility] TDAP Unknown Completed [facility] SARS-COV-2 COVID-19 MODERNA 12+ YRS VACCINE Unknown Completed [facility] Influenza Virus Vaccine Quad IM, Preserv and ABX Free 6 MO-64 YRS (FLUCELVAX) Unknown Completed [facility] TDAP Unknown Completed [facility] SARS-COV-2 COVID-19 MODERNA 12+ YRS VACCINE Unknown Completed [facility] Influenza Virus Vaccine Quad IM, Preserv and ABX Free 6 MO-64 YRS (FLUCELVAX) Unknown Completed [facility] TDAP Unknown Completed [facility] SARS-COV-2 COVID-19 MODERNA 12+ YRS VACCINE Unknown Completed [facility] Influenza Virus Vaccine Quad IM, Preserv and ABX Free 6 MO-64 YRS (FLUCELVAX) Unknown Completed [facility] TDAP Unknown Completed [facility] SARS-COV-2 COVID-19 MODERNA 12+ YRS VACCINE Unknown Completed [facility] Influenza Virus Vaccine Quad IM, Preserv and ABX Free 6 MO-64 YRS (FLUCELVAX) Unknown Completed [facility] TDAP Unknown Completed [facility] SARS-COV-2 COVID-19 MODERNA 12+ YRS VACCINE Unknown Completed [facility] Influenza Virus Vaccine Quad IM, Preserv and ABX Free 6 MO-64 YRS (FLUCELVAX) Unknown Completed [facility] TDAP Unknown Completed [facility] SARS-COV-2 COVID-19 MODERNA 12+ YRS VACCINE Unknown Completed [facility] Influenza Virus Vaccine Quad IM, Preserv and ABX Free 6 MO-64 YRS (FLUCELVAX) Unknown Completed [facility] TDAP Unknown Completed [facility] SARS-COV-2 COVID-19 MODERNA 12+ YRS VACCINE Unknown Completed [facility] Influenza Virus Vaccine Quad IM, Preserv and ABX Free 6 MO-64 YRS (FLUCELVAX) Unknown Completed [facility] TDAP Unknown Completed [facility] SARS-COV-2 COVID-19 MODERNA 12+ YRS VACCINE Unknown Completed [facility] Influenza Virus Vaccine Quad IM, Preserv and ABX Free 6 MO-64 YRS (FLUCELVAX) Unknown Completed [facility] TDAP Unknown Completed [facility] SARS-COV-2 COVID-19 MODERNA 12+ YRS VACCINE Unknown Completed [facility] Influenza Virus Vaccine Quad IM, Preserv and ABX Free 6 MO-64 YRS (FLUCELVAX) Unknown Completed [facility] TDAP Unknown Completed [facility] SARS-COV-2 COVID-19 MODERNA 12+ YRS VACCINE Unknown Completed [facility] Influenza Virus Vaccine Quad IM, Preserv and ABX Free 6 MO-64 YRS (FLUCELVAX) Unknown Completed [facility] TDAP Unknown Completed [facility] SARS-COV-2 COVID-19 MODERNA 12+ YRS VACCINE Unknown Completed [facility] Influenza Virus Vaccine Quad IM, Preserv and ABX Free 6 MO-64 YRS (FLUCELVAX) Unknown Completed [facility] TDAP Unknown Completed [facility] SARS-COV-2 COVID-19 MODERNA 12+ YRS VACCINE Unknown Completed [facility] Influenza Virus Vaccine Quad IM, Preserv and ABX Free 6 MO-64 YRS (FLUCELVAX) Unknown Completed [facility] TDAP Unknown Completed [facility] SARS-COV-2 COVID-19 MODERNA 12+ YRS VACCINE Unknown Completed [facility] SARS-COV-2 COVID-19 MODERNA 12+ YRS VACCINE Unknown Completed [facility] SARS-COV-2 COVID-19 MODERNA 12+ YRS VACCINE Unknown Completed [facility] SARS-COV-2 COVID-19 MODERNA 12+ YRS VACCINE Unknown Completed [facility] SARS-COV-2 COVID-19 MODERNA 12+ YRS VACCINE Unknown Completed [facility] SARS-COV-2 COVID-19 MODERNA 12+ YRS VACCINE Unknown Completed [facility] SARS-COV-2 COVID-19 MODERNA 12+ YRS VACCINE Unknown Completed [facility] SARS-COV-2 COVID-19 MODERNA 12+ YRS VACCINE Unknown Completed [facility] SARS-COV-2 COVID-19 MODERNA 12+ YRS VACCINE Unknown Completed [facility] SARS-COV-2 COVID-19 MODERNA 12+ YRS VACCINE Unknown Completed [facility] SARS-COV-2 COVID-19 MODERNA 12+ YRS VACCINE Unknown Completed [facility] SARS-COV-2 COVID-19 MODERNA 12+ YRS VACCINE Unknown Completed [facility] SARS-COV-2 COVID-19 MODERNA 12+ YRS VACCINE Unknown Completed [facility] SARS-COV-2 COVID-19 MODERNA 12+ YRS VACCINE Unknown Completed [facility] SARS-COV-2 COVID-19 MODERNA 12+ YRS VACCINE Unknown Completed [facility] SARS-COV-2 COVID-19 MODERNA 12+ YRS VACCINE Unknown Completed [facility] SARS-COV-2 COVID-19 MODERNA 12+ YRS VACCINE Unknown Completed [facility] SARS-COV-2 COVID-19 MODERNA 12+ YRS VACCINE Unknown Completed [facility] SARS-COV-2 COVID-19 MODERNA 12+ YRS VACCINE Unknown Completed [facility] SARS-COV-2 COVID-19 MODERNA 12+ YRS VACCINE Unknown Completed [facility] Influenza Virus Vaccine Quad IM, Preserv and ABX Free 6 MO-64 YRS (FLUCELVAX) Unknown Completed [facility] TDAP Unknown Completed [facility] SARS-COV-2 COVID-19 MODERNA 12+ YRS VACCINE Unknown Completed [facility] Influenza Virus Vaccine Quad IM, Preserv and ABX Free 6 MO-64 YRS (FLUCELVAX) Unknown Completed [facility] TDAP Unknown Completed [facility] SARS-COV-2 COVID-19 MODERNA 12+ YRS VACCINE Unknown Completed [facility] Influenza Virus Vaccine Quad IM, Preserv and ABX Free 6 MO-64 YRS (FLUCELVAX) Unknown Completed [facility] TDAP Unknown Completed [facility] SARS-COV-2 COVID-19 MODERNA 12+ YRS VACCINE Unknown Completed [facility] Influenza Virus Vaccine Quad IM, Preserv and ABX Free 6 MO-64 YRS (FLUCELVAX) Unknown Completed [facility] TDAP Unknown Completed [facility] SARS-COV-2 COVID-19 MODERNA 12+ YRS VACCINE Unknown Completed [facility] Influenza Virus Vaccine Quad IM, Preserv and ABX Free 6 MO-64 YRS (FLUCELVAX) Unknown Completed [facility] TDAP Unknown Completed [facility] SARS-COV-2 COVID-19 MODERNA 12+ YRS VACCINE Unknown Completed [facility] Influenza Virus Vaccine Quad IM, Preserv and ABX Free 6 MO-64 YRS (FLUCELVAX) Unknown Completed [facility] TDAP Unknown Completed [facility] SARS-COV-2 COVID-19 MODERNA 12+ YRS VACCINE Unknown Completed [facility] Influenza Virus Vaccine Quad IM, Preserv and ABX Free 6 MO-64 YRS (FLUCELVAX) Unknown Completed [facility] [facility] Completed [facility] SARS-COV-2 COVID-19 MODERNA 12+ YRS VACCINE Unknown Completed [facility] Influenza Virus Vaccine Quad IM, Preserv and ABX Free 6 MO-64 YRS (FLUCELVAX) Unknown Completed [facility] TDAP Unknown Completed [facility] SARS-COV-2 COVID-19 MODERNA 12+ YRS VACCINE Unknown Completed [facility] Influenza Virus Vaccine Quad IM, Preserv and ABX Free 6 MO-64 YRS (FLUCELVAX) Unknown Completed [facility] TDAP Unknown Completed [facility] SARS-COV-2 COVID-19 MODERNA 12+ YRS VACCINE Unknown Completed [facility] SARS-COV-2 COVID-19 MODERNA 12+ YRS VACCINE Unknown Completed [facility] Influenza Virus Vaccine Quad IM, Preserv and ABX Free 6 MO-64 YRS (FLUCELVAX) Unknown Completed [facility] TDAP Unknown Completed [facility] SARS-COV-2 COVID-19 MODERNA 12+ YRS VACCINE Unknown Completed [facility] Influenza Virus Vaccine Quad IM, Preserv and ABX Free 6 MO-64 YRS (FLUCELVAX) Unknown Completed [facility] TDAP Unknown Completed [facility] SARS-COV-2 COVID-19 MODERNA 12+ YRS VACCINE Unknown Completed [facility] Influenza Virus Vaccine Quad IM, Preserv and ABX Free 6 MO-64 YRS (FLUCELVAX) Unknown Completed [facility] TDAP Unknown Completed [facility] SARS-COV-2 COVID-19 MODERNA 12+ YRS VACCINE Unknown Completed [facility] Influenza Virus Vaccine Quad IM, Preserv and ABX Free 6 MO-64 YRS (FLUCELVAX) Unknown Completed [facility] TDAP Unknown Completed [facility] SARS-COV-2 COVID-19 MODERNA 12+ YRS VACCINE Unknown Completed [facility] Influenza Virus Vaccine Quad IM, Preserv and ABX Free 6 MO-64 YRS (FLUCELVAX) Unknown Completed [facility] TDAP Unknown Completed [facility] SARS-COV-2 COVID-19 MODERNA 12+ YRS VACCINE Unknown Completed [facility] Influenza Virus Vaccine Quad IM, Preserv and ABX Free 6 MO-64 YRS (FLUCELVAX) Unknown Completed [facility] TDAP Unknown Completed [facility] SARS-COV-2 COVID-19 MODERNA 12+ YRS VACCINE Unknown Completed [facility] SARS-COV-2 COVID-19 MODERNA 12+ YRS VACCINE Unknown Completed [facility] Influenza Virus Vaccine Quad IM, Preserv and ABX Free 6 MO-64 YRS (FLUCELVAX) Unknown Completed [facility] TDAP Unknown Completed [facility] SARS-COV-2 COVID-19 MODERNA 12+ YRS VACCINE Unknown Completed [facility] Influenza Virus Vaccine Quad IM, Preserv and ABX Free 6 MO-64 YRS (FLUCELVAX) Unknown Completed [facility] TDAP Unknown Completed [facility] SARS-COV-2 COVID-19 MODERNA 12+ YRS VACCINE Unknown Completed [facility] Influenza Virus Vaccine Quad IM, Preserv and ABX Free 6 MO-64 YRS (FLUCELVAX) Unknown Completed [facility] TDAP Unknown Completed [facility] SARS-COV-2 COVID-19 MODERNA 12+ YRS VACCINE Unknown Completed [facility] Influenza Virus Vaccine Quad IM, Preserv and ABX Free 6 MO-64 YRS (FLUCELVAX) Unknown Completed [facility] TDAP Unknown Completed [facility] SARS-COV-2 COVID-19 MODERNA 12+ YRS VACCINE Unknown Completed [facility] Influenza Virus Vaccine Quad IM, Preserv and ABX Free 6 MO-64 YRS (FLUCELVAX) Unknown Completed [facility] TDAP Unknown Completed [facility] SARS-COV-2 COVID-19 MODERNA 12+ YRS VACCINE Unknown Completed [facility] Influenza Virus Vaccine Quad IM, Preserv and ABX Free 6 MO-64 YRS (FLUCELVAX) Unknown Completed [facility] TDAP Unknown Completed [facility] SARS-COV-2 COVID-19 MODERNA 12+ YRS VACCINE Unknown Completed [facility] Influenza Virus Vaccine Quad IM, Preserv and ABX Free 6 MO-64 YRS (FLUCELVAX) Unknown Completed [facility] TDAP Unknown Completed [facility] SARS-COV-2 COVID-19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 4.2.7.2.686 [id number] 086 [id number] [facility] 2023-08-09 10:30:00 2023-08-09 10:45:00 [employer] Inspector Visit Lab, Marc Hewittgustavo [facility] 1.2840.114 350.1.13.10 4.2.7.2.686 [id number] [facility] 2023-08-09 08:30:00 2023-08-09 09:27:04 Office Visit Carl [facility]ILD[facility] 1.2840.114 350.1.13.10 4.2.7.2.686 [id number] 044 [id number] [facility] 2023-08-09 08:30:00 2023-08-09 09:27:04 Outpatient R CARL [facility] [id number] [facility] 2023-08-09 00:00:00 2023-08-09 00:00:00 Transition of Care Tammie Mcbride 1.2840.114 350.1.13.10 4.2.7.2.686 [id number] 403 [id number] [facility] 2023-08-09 00:00:00 2023-08-09 00:00:00 Patient Outreach Jessie Burch [facility]NE[facility] 1.2.840.114 350.1.13.10 4.2.7.2.686 [id number] [facility] 2023-08-09 00:00:00 2023-08-09 00:00:00 Orders Only Doctor Unassigned, [place] [facility] 1.2840.114 350.1.13.10 4.2.7.2.686 [id number] [id number] [facility] 2023-07-31 00:00:00 2023-07-31 00:00:00 Orders Only Doctor Unassigned, [place] [facility] 1.20.114 350.1.13.10 4.2.7.2.686 [id number] 009 [id number] [facility] 2023-07-31 00:00:00 2023-07-31 00:00:00 Telephone Trinidad Jean 1..114 350.1.13.10 4.2.7.2.686 [id number] 086 [id number] [facility] 2023-07-18 15:17:16 2023-07-18 15:17:16 Outpatient [facility] [id number] Jj Cook 2023-07-09 08:25:04 2023-07-09 08:25:04 Outpatient [facility] [id number] Jj Cook 2023-07-06 09:05:00 2023-07-06 09:05:00 Outpatient [facility] [id number] Jj Cook 2021-08-16 01:54:00 2021-08-16 06:44:00 Emergency X GEORGE ALVAREZ [facility] ERT [id number] [facility] 2021-08-16 01:54:00 2021-08-16 06:44:00 Emergency George Alvarez [facility] 1.84.114 350.1.13.10 4.2.7.2.686 [id number] [facility] 2021-08-16 00:00:00 2021-08-16 00:00:00 Orders Only Doctor Unassigned, [place] [facility] 1.2.114 350.1.13.10 4.2.7.2.686 [id number] [id number] [facility] 2020-02-26 23:22:53 2020-02-26 23:22:53 Emergency X YARITZA CAMACHO [facility] ERT [id number] [facility] Results Test Description Test Time Test Comments Results Resul t Comments Source XR FOOT 3+ VW RIGHT 2024-05-01 15:08:10 HISTORY: Right toe pain and limited range of motion. FINDINGS: AP, lateral, oblique views of right foot showed no acute fractureor dislocation. 3.5 mm heel spur, prominent accessory os navicular bone,mild first metatarsus varus with minimal degenerative changes in first MTPjoint noted. CONCLUSIONS: No acute fracture or dislocation in right foot . [facility], [id number] 09:46:42* Test Item Value Reference Range Interpretation Comme nts VIT B12 (test code = 0569128172) 226 pg/mL 240-930 L CONNOR (test code = CONNOR) Biotin has been reported to cause a positive bias, interpret results relative to patient's use of biotin. Lab Interpretation (test code = 61610-9) [facility] Whtyjyj1145-92-33 03:12:17 * Test Item Value Reference Range Interpretation Comme nts TSH (test code = 9554158191) 0.86 0.45-4.70 Lab Interpretation (test cod e = 53443-1) Normal [facility] Hem[facility] (A1C)2024-02-15 02:46:20* Test Item Value Reference Range Interpretation Comme nts HGB A1C (test code = 4548-4) 5.3 % 4.0-5.7 CONNOR (test code = CONNOR) Reference RangesNormal: <5.7%Prediabetes: 5.7 - 6.4%Diabetes: > 6.5% Lab Interpretation (test code = 91836-1) Normal [facility] Center[facility]id [facility] (07314)(Total Cholesterol, Triglycerides, HDL)2024-02-15 02:42:11* Test Item Value Reference Range Interpretation Comme nts CHOL (test code = 7216493394) 137 mg/dL 120-200 HDL (test code = 4662965214) 40 mg/dL >=50 L HDLC RATIO (test code = 0943175773) 3.4 <=4.5 TRIG (test code = 9299031436) 170 mg/dL 30-170 LDL CHOL (test code = 37955-3) 63 mg/dL <=160 VLDL (test code = 2649985702) 34 mg/dL 5-60 Lab Interpretation (test cod e = 77636-2) [facility]normal [facility] Center[facility]esium2024-[facility]-14 02:41:51* Test Item Value Reference Range Interpretation Comme nts MAGNESIUM (test code = 7861284043) 2.0 mg/dL 1.7-2.4 Lab Interpretation (test cod e = 71171-6) Normal [facility] CenterCOMP. METABOLIC PANEL (78779)2023-08-09 20:46:50* Test Item Value Reference Range Interpretation Comme nts NA (test code = 6199198424) 137 mmol/L 135-145 K (test code = 2468935586) 4.0 mmol/L 3.5-5.0 CL (test code = 3813266105) 102 mmol/L 98-108 CO2 TOTAL (test code = 0514167049) 28 mmol/L 23-31 AGAP (test code = 0033558580) 7 2-16 BUN (test code = 3055956888) 12 mg/dL 7-23 GLUCOSE (test code = 5444103205) 133 mg/dL 70-110 H CREATININE (test code = 4154738441) 0.54 mg/dL 0.50-1.04 TOTAL BILI (test code = 3460482979) 1.2 mg/dL 0.1-1.1 H CALCIUM (test code = 5328138197) 8.9 mg/dL 8.6-10.6 T PROTEIN (test code = 6495098158) 7.4 g/dL 6.3-8.2 ALBUMIN (test code = 6236309498) 3.9 g/dL 3.5-5.0 ALK PHOS (test code = 1623193015) 83 U/L 34-122 ALTv (test code = 1742-6) 19 U/L 5-35 AST(SGOT) (test code = 0011108080) 26 U/L 13-40 eGFR (test code = 64553-4) 114.4 mL/min/1.73m2 CKD-EPI eGFR (2020). Assuming creatinine has been stable day-to-day for at least three months, the eGFR indicates Category G1 (>= 90 mL/min/1.73 m2) Lab Interpretation (test code = 30820-3) Abnormal [facility] WITH [id number] 20:15:02* Test Item Value Reference Range Interpretation Comme nts WBC (test code = 6690-2) 5.46 See_Comment [Automated messa ge] The system which generated this result transmitted reference range: 4.30 - 11.10 10*3/?L. The reference range was not used to interpret this result as normal/abnormal. RBC (test code = 789-8) 4.22 See_Comment [Automated messa ge] The system which generated this result transmitted reference range: 3.93 - 5.25 10*6/?L. The reference range was not used to interpret this result as normal/abnormal. HGB (test code = 718-7) 11.5 g/dL 11.6-15.0 L HCT (test code = 4544-3) 36.2 % 35.7-45.2 MCV (test code = 787-2) 85.8 fL 80.6-95.5 MCH (test code = 785-6) 27.3 pg 25.9-32.8 MCHC (test code = 786-4) 31.8 g/dL 31.6-35.1 RDW-SD (test code = 82004-4) 56.5 fL 39.0-49.9 H RDW-CV (test code = 788-0) 18.6 % 12.0-15.5 H PLT (test code = 777-3) 201 See_Comment [Automated messa ge] The system which generated this result transmitted reference range: 166 - 358 10*3/?L. The reference range was not used to interpret this result as normal/abnormal. MPV (test code = 89198-1) 11.0 fL 9.5-12.9 NRBC/100 WBC (test code = 5133919004) 0.0 See_Comment [Automated [employer] ssage] The system which generated this result transmitted reference range: 0.0 - 10.0 /100 WBCs. The reference range was not used to interpret this result as normal/abnormal. NRBC x10^3 (test code = 1104751699) See_Comment [Automated messa ge] The system which generated this result transmitted reference range: 10*3/?L. The reference range was not used to interpret this result as normal/abnormal. GRAN MAT (NEUT) % (test code = 770-8) 73.3 % IMM GRAN % (test code = 6580851582) 0.40 % LYMPH % (test code = 736-9) 16.7 % MONO % (test code = 5905-5) 6.2 % EOS % (test code = 713-8) 2.9 % BASO % (test code = 706-2) 0.5 % GRAN MAT x10^3(ANC) (test code = 9541748760) 4.00 10*3/uL 1.88-7.09 IMM GRAN x10^3 (test code = 4520069981) 0.00-0.06 LYMPH x10^3 (test code = 731-0) 0.91 10*3/uL 1.32-3.29 L MONO x10^3 (test code = 742-7) 0.34 10*3/uL 0.33-0.92 EOS x10^3 (test code = 711-2) 0.16 10*3/uL 0.03-0.39 BASO x10^3 (test code = 704-7) 0.03 10*3/uL 0.01-0.07 Lab Interpretation (test code = 99325-6) Abnormal [facility], THIRD [id number] 06:05:02* Test Item Value Reference Range Interpretation Comme nts TSH, THIRD GENERATION (test code = 2821) 2.440 UIU/ML 0.400-4.100 [id number] 06:05:02* Test Item Value Reference Range Interpretation Comme nts PROLACTIN (test code = 2800) 5.9 NG/ML 5.0-37.0 NOTE: Methodolog y is Mikaela Nova Electrochemiluminescence Immunoassay (ECLIA). Values obtained with different assays/manufacturers cannot be used interchangeably. Results should not be used as sole basis to establish the presence or absence of malignancy. FSH + LH [id number] 06:05:02* Test Item Value Reference Range Interpretation Comme nts FOLLICLE STIM HORMONE (test code = 2700) 4.7 IU/L SEE BELOW EXPEC TWILA VALUES FOR FSH FOR FEMALES >17 YEARS FOLLICULAR 3.5-12.5 IU/L MID-CYCLE PEAK 4.7-21.5 IU/L LUTEAL PHASE 1.7-7.7 IU/L POSTMENOPAUSAL 25.8-134.8 IU/L LUTEINIZING HORMONE (test code = 2776) 6.1 IU/L SEE BELOW EXPEC TWILA VALUES FOR LH FOR FEMALES >17 YEARS MALES FEMALES >=18 YEARS 1.8-8.6 IU/L FOLLICULAR 2.4-12.6 IU/L MID-CYCLE PEAK 14.0-95.6 IU/L LUTEAL PHASE 1.0-11.4 IU/L POSTMENOPAUSAL 7.7-58.5 IU/L COMPREHENSIVE METABOLIC [id number] 05:53:25* Test Item Value Reference Range Interpretation Comme nts GLUCOSE (test code = 2216) 145 MG/DL 70-99 H BUN (test code = 2207) 12 MG/DL 6-20 CREATININE (test code = 2213) 0.56 MG/DL 0.60-1.30 L eGFR (2020 CKD-EPI) (test code = 53818) 113 ML/MIN/1.73 >60 CALC BUN/CREAT (test code = 2235) 21 RATIO 6-28 SODIUM (test code = 223) 138 MEQ/L 133-146 POTASSIUM (test code = 2228) 4.5 MEQ/L 3.5-5.4 CHLORIDE (test code = 2215) 100 MEQ/L 95-107 CARBON DIOXIDE (test code = 2206) 25 MEQ/L 19-31 CALCIUM (test code = 2209) 9.3 MG/DL 8.5-10.5 PROTEIN, TOTAL (test code = 2228) 7.3 G/DL 6.1-8.3 ALBUMIN (test code = 2201) 4.1 G/DL 3.5-5.2 CALC GLOBULIN (test code = 2240) 3.2 G/DL 1.9-3.7 CALC A/G RATIO (test code = 2234) 1.3 RATIO 1.0-2.6 BILIRUBIN, TOTAL (test code = 2206) 0.6 MG/DL <=1.2 ALKALINE PHOSPHATASE (test code = 2204) 95 U/L 40-120 AST (test code = 2218) 16 U/L 9-40 ALT (test code = 2219) 15 U/L 5-40 UNLESS OTHERWISE INDICATED, ALL TESTING PERFORMED AT [facility] [address] [place] [id number] WET [employer] HEAD ASSISTANT: AMANDA GLEASON M.D. IA NUMBER [id number] [facility] [place]. [id number] CBC W/AUTO DIFF WITH [id number] 04:34:25* Test Item Value Reference Range Interpretation Comme nts WBC (test code = 1001) 5.1 K/UL 3.5-11.0 RBC (test code = 1002) 3.90 M/UL 3.80-5.40 HEMOGLOBIN (test code = 1003) 10.1 G/DL 11.5-15.5 L HEMATOCRIT (test code = 1004) 32.6 % 34.0-45.0 L MCV (test code = 1005) 83.6 fL 80.0-99.0 MCH (test code = 1006) 25.9 PG 25.0-33.0 MCHC (test code = 1007) 31.0 G/DL 31.0-36.0 RDW (test code = 1038) 16.0 % 11.5-15.0 H NEUTROPHILS (test code = 1008) 68.1 % LYMPHOCYTES (test code = 1010) 19.0 % MONOCYTES (test code = 1011) 8.1 % EOSINOPHILS (test code = 1012) 4.2 % BASOPHILS (test code = 1013) 0.4 % IMMATURE GRANULOCYTES (test code = 1036) 0.2 % NUCLEATED RBCS (test code = 1065) 0.0 /100 WBC'S See_Comment [Automated messa ge] The system which generated this result transmitted reference range: 0.0. The reference range was not used to interpret this result as normal/abnormal. PLATELET COUNT (test code = 1015) 246 K/UL 130-400 ABSOLUTE NEUTROPHILS (test code = 1066) 3.44 K/UL 1.50-7.50 ABSOLUTE LYMPHOCYTES (test code = 1067) 0.96 K/UL 1.00-4.00 L ABSOLUTE MONOCYTES (test code = 1068) 0.41 K/UL 0.20-1.00 ABSOLUTE EOSINOPHILS (test code = 1040) 0.21 K/UL 0.00-0.50 ABSOLUTE BASOPHILS (test code = 1069) 0.02 K/UL 0.00-0.20 ABS IMMATURE GRANULOCYTES (test code = 1020) 0.01 K/UL 0.00-0.10 ABS NUCLEATED RBCS (test code = 40660) 0.00 K/UL 0.00-0.11 HEMOGLOBIN [id number] 03:40:06* Test Item Value Reference Range Interpretation Comme nts HEMOGLOBIN A1c (test code = 43583) 6.6 % 4.2-5.6 H [place] [employer] GUIDELINES FOR HGB A1C: PREDIABETES/INCREASED RISK . . . . . . . 5.7-6.4% DIAGNOSIS OF DIABETES . . . . . . . . . >=6.5% WITH CONFIRMATION OR APPROPRIATE SYMPTOMS NOTE: ASSAY MAY BE AFFECTED BY HEMOGLOBINOPATHIES (SICKLE CELL ANEMIA, S-C DISEASE, OTHERS) OR ARTIFICIALLY LOWERED BY DECREASED RED CELL SURVIVAL (HEMOLYTIC ANEMIAS, BLOOD LOSS, ETC.). CONSIDER ALTERNATE TESTING OR LABORATORY CONSULTATION. Notes Date/Time Note Provider Source 2024-06-03 16:49:25 Images from the original note were not included. Will refill one month on naproxen 500 mg Analgesics: NSAIDS Ssvqsp6106/03/2024 04:04 PM Protocol Details Cr in normal range and within 360 days Valid encounter within last 12 months Recent Visits Date Type Provider Dept 05/01/24 Office Visit Becca Henry FNP [facility] 02/14/24 Office Visit Becca Henry VENUE COORDINATOR [facility] 12/27/23 Office Visit Becca Henry FNP [facility] 11/29/23 Office Visit Becca Henry VENUE COORDINATOR [facility] 10/11/23 Office Visit Becca Henry VENUE COORDINATOR [facility] 09/13/23 Office Visit Becca Henry VENUE COORDINATOR [facility] 08/09/23 Office Visit Becca Henry VENUE COORDINATOR [facility] Showing recent visits within past 540 days with a meds authorizing provider and meeting all other requirements Future Appointments Date Type Provider Dept 07/03/24 Appointment Becca Henry FNP [facility] 08/14/24 Appointment Becca Henry FNP [facility] Showing future appointments within next 150 days with a meds authorizing provider and meeting all other requirements Jazmine Rider MA [facility] 2024-05-22 09:39:36 Images from the original note were not included. Requested Renewals metFORMIN 500 mg tablet Sig: Take 1 tablet by mouth in the morning and 1 tablet in the evening. Take with meals. Disp: 180 tablet Refills: 0 Start: 05/22/2024 Class: eRX Non-formulary For: Type 2 diabetes mellitus without complication, without long-term current use of insulin Last ordered: 3 months ago (02/05/2024) by JALEN Carter Endocrinology: Diabetes - Biguanides Hyvhly3705/22/2024 09:35 AM Protocol Details Cr is between 0 and 1.3 and within 360 days Valid encounter within last 12 months HBA1C within 180 days To be filled at: [address] CREATININE (mg/dL) Date Value 02/14/2024 1.75 (H) Recent Visits Date Type Provider Dept 05/01/24 Office Visit Becca Henry FNP [facility] 02/14/24 Office Visit Becca Henry FNP [facility] 12/27/23 Office Visit Becca Henry FNP [facility] 11/29/23 Office Visit Becca Henry FNP [facility] 10/11/23 Office Visit Becca Henry FNP [facility] 09/13/23 Office Visit Becca Henry FNP [facility] 08/09/23 Office Visit Becca Henry FNP [facility] Showing recent visits within past 540 days with a meds authorizing provider and meeting all other requirements Future Appointments Date Type Provider Dept 07/03/24 Appointment Becca Henry FNP [facility] 08/14/24 Appointment Anene, Becca, VENUE COORDINATOR [facility] Showing future appointments within next 150 days with a meds authorizing provider and meeting all other requirements Jamilah Brunson LVN [facility] 2024-05-15 15:35:16 Received authorization approval from [facility] for ob Trinidad Candice Miranda 05/15/2024 3:35 PM Trinidad Harvey [facility] 2024-05-14 14:36:21 Received authorization approval from [facility] for labs Trinidad Candice Miranda 05/14/2024 2:36 PM Trinidad Harvey [facility] 2024-05-07 09:25:37 OCA worked 8.29.24 post file. No new orders placed to be requested by OCA at this time Trinidad Harvey Miranda 05/07/2024 9:25 AM [facility]24-05-06 15:40:57 Contacted patient to discuss lab results, patient verbalized understanding. Serena Aburto MA [facility] 2024-05-06 14:43:37 Tere Loving is a 48 year old female Patient is returning call to clinic, no documentation was found on chart as to who called. Please advise. Jessika Rivera 05/06/2024 2:44 PM Jessika Rivera [facility] 2024-05-01 09:30:00 Images from the original note were not included. Venipuncture collection performed by clean technique on the right anticubitus. Total of 1 attempts were made. Slight pressure and a bandage/dressing were applied to the site(s). The patient experienced no complications. The following specimens were processed according to instructions and sent to [facility] laboratories per lab order on 05/01/2024 : LT BLUE SST 3 RED LAV 1 PPT DK GREEN (LiHep) DK GREEN (SodH) KATE DK BLUE (K2) DK BLUE (S) ACD Blood Culture NIPT/NTD T [facility] 2024-05-01 08:00:00 Addended by: JALEN HENRY DNP-BECCA TAVERAS on: 05/11/2024 06:37 PM Modules accepted: Orders [facility] 2024-04-30 07:48:25 Images from the original note were not included. Requested Renewals losartan 100 mg tablet Sig: Take 1 tablet by mouth in the morning. Disp: 90 tablet Refills: 0 Start: 04/29/2024 Class: eRX Non-formulary For: Primary hypertension Last ordered: 3 months ago (01/23/2024) by JALEN Carter Cardiovascular: Angiotensin Receptor Blockers Ucvqlj0404/29/2024 07:29 PM Protocol Details Cr in normal range and within 360 days Valid encounter within last 12 months K in normal range and within 360 days To be filled at: [facility] [address] [place] [address] CREATININE (mg/dL) Date Value 02/14/2024 1.75 (H) Recent Visits Date Type Provider Dept 02/14/24 Office Visit Becca Henry FNP [facility] 12/27/23 Office Visit Becca Henry FNP [facility] 11/29/23 Office Visit Becca Henry FNP [facility] 10/11/23 Office Visit Becca Henry FNP [facility] 09/13/23 Office Visit Becca Henry VENUE COORDINATOR [facility] 08/09/23 Office Visit Becca Henry FNP [facility] Showing recent visits within past 540 days with a meds authorizing provider and meeting all other requirements Future Appointments Date Type Provider Dept 07/03/24 Appointment Becca Henry VENUE COORDINATOR [facility] 08/14/24 Appointment Becca Henry FNP [facility] Showing future appointments within next 150 days with a meds authorizing provider and meeting all other requirements Jamilah Brunson LVN [facility] 2024-04-29 07:40:52 Referral placed Jamilah Brunson LVN [facility] 2024-04-28 15:20:[address] a RTC referral in for this patient to see OB. Thanks Zara List of last OB visit Dx Visit Diagnoses Abnormal uterine bleeding (AUB) N93.9 Other general counseling and advice for contraceptive management Z30.09 Class 2 obesity without serious comorbidity with body mass index (BMI) of 35.0 to 35.9 in adult, unspecified obesity type E66.9, Z68.35 examination or test, negative result Z32.02 Pending order in encounter [facility] 2024-04-23 10:09:27 Name: Tere Loving : [birth year] DOS: 04.22.24 Specialty: ob Scheduled follow up: 07.23.24 Orders placed: NA Requesting: Auth for additional visits for scheduled follow up. Trinidad Jean 04/23/2024 10:09 AM Trinidad Jean [facility] 2024-04-22 16:00:00 Images from the original note were not included. Venipuncture collection performed by clean technique on the left anticubitus. Total of 1 attempts were made. Slight pressure and a bandage/dressing were applied to the site(s). The patient experienced no complications. The following specimens were processed according to instructions and sent to [facility] laboratories per lab order on 04/22/2024 : LT BLUE SST 2 RED LAV PPT DK GREEN (LiHep) DK GREEN (SodH) KATE DK BLUE (K2) DK BLUE (S) ACD Blood Culture NIPT/NTD [facility] 2024-04-22 14:00:00 Addended by: COOKIE BOWER on: 04/23/2024 11:09 AM Modules accepted: Level of Service OG-OBSTETRICS & GYNECOLOGY STAFF [facility] 2024-04-11 08:33:40 Pt has been scheduled Anila Armas [facility] 2024-04-09 13:59:45 Tere Loving is a 48 year old female Patient is calling requesting to reschedule 04/09 appointment. Please contact Cathy Irizarry [facility] 2024-04-03 10:34:38 Pt is requesting call back to schedule appointment referral is in system and approved. Please call [phone] (home) [phone] (work) AHSAN Bass [facility] 2024-03-27 08:12:08 Images from the original note were not included. Requested Renewals traZODone 50 mg tablet Sig: Take 1.5 tablets by mouth at bedtime. Disp: 135 tablet Refills: 0 Start: 03/26/2024 Class: eRX Non-formulary For: Anxiety Last ordered: 3 months ago (12/27/2023) by JALEN Carter Psychiatry: Antidepressants Brnogb9003/26/2024 06:39 PM Protocol Details Manual Review: Verify no changes in dose in the last 3 months Valid encounter within last 12 months To be filled at: [facility] [address] [place] [address] Recent Visits Date Type Provider Dept 02/14/24 Office Visit Becca Henry FNP [facility] 12/27/23 Office Visit Becca Henry VENUE COORDINATOR [facility] 11/29/23 Office Visit Becca Henry VENUE COORDINATOR [facility] 10/11/23 Office Visit Becca Henry VENUE COORDINATOR [facility] 09/13/23 Office Visit Becca Henry, VENUE COORDINATOR [facility] 08/09/23 Office Visit Becca Henry FNP [facility] Showing recent visits within past 540 days with a meds authorizing provider and meeting all other requirements Future Appointments Date Type Provider Dept 07/03/24 Appointment Becca Henry FNP [facility] 08/14/24 Appointment Becca Henry FNP [facility] Showing future appointments within next 150 days with a meds authorizing provider and meeting all other requirements Jamilah Brunson LVN [facility] 2024-03-24 09:01:02 [address] approval from [facility] Trinidad Jean 03/24/2024 9:01 AM Trinidad Jean [facility] 2024-03-17 15:30:00 Regarding: Pain and itching in left foot x 1 wk, asking to speak with nurse ----- Message from Charles Santos sent at 03/17/2024 3:29 PM CDT ----- 48 yr / female Pain and itching in left foot x 1 wk, possible bug / insect bite per patient Rosa Maria Burgess RN [facility] 2024-03-03 15:45:[address] a follow up referral for this patient to see OB. Thanks Zara List of last visit OB Dx Visit Diagnoses Menorrhagia with irregular cycle N92.1 BMI 40.0-44.9, adult Z68.41 Order pending in encounter [facility] 2024-03-03 14:42:15 Name: Tere Loving : [birth year] DOS: 9.28.24 Specialty: ob Scheduled follow up: TBA Orders placed: NA Requesting: Auth for additional visits for scheduled follow up. Trinidad Jean 03/03/2024 2:42 PM Trinidad Jean [facility] 2024-03-03 12:09:15 Rerouting to correct clinic. 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 [facility] 2024-03-03 11:12:09 Pt states she had a conversation earlier today with someone in clinic and had declined an Rx for B12, has reconsidered and would like to request the Rx be sent to her pharm. Please F/u [facility] [address] [place] [address] Skyler Santos [facility] 2024-03-03 10:38:49 Tere Loving is a 48 year old female Pt calling in to discuss labs. Pt was read notes. No further questions at this time. Pt stated she will start taking otc b12. Louann Gaytan [facility] 2024-02-29 13:39:57 Tere Loving is a 48 year old female Pt states she received a letter stating the clinic has been trying to contact her about lab results. Pt is requesting to speak with a nurse. Please contact pt. Sagrario Clements [facility] 2024-02-29 09:03:33 Tere Loving is a 48 year old female. Patient is reaching out to discuss lab results. Yulisa Dias [facility] 2024-02-21 15:08:33 Received authorization approval from [facility] Trinidad Jean 02/21/2024 3:08 PM Trinidad Jean [facility] 2024-02-18 13:21:30 OCA worked 6. post file. No new orders placed to be requested by O[facility] at this time. Trinidad Candice Jean 02/18/2024 1:22 PM Trinidad Jean [facility] 2024-02-14 16:45:00 Images from the original note were not included. Venipuncture collection performed by clean technique on the right anticubitus. Total of 1 attempts were made. Slight pressure and a bandage/dressing were applied to the site(s). The patient experienced no complications. The following specimens were processed according to instructions and sent to [facility] laboratories per lab order on today: LT BLUE SST RED LAV 2 PPT LTGREEN (LiHep) 2 DK GREEN (SodH) KATE DK BLUE (K2) DK BLUE (S) ACD Blood Culture NIPT/NTD [facility] 2024-02-04 07:18:22 Last Refilled: rosuvastatin 10 mg tablet 90 tablet 0 11/08/2023 -- -- Sig: Take 1 tablet by mouth at bedtime. Sent to pharmacy as: rosuvastatin 10 mg tablet (CRESTOR) Class: eRX Route: Oral Order: [id number] Date/Time Signed: 11/08/2023 16:26 E-Prescribing Status: Receipt confirmed by pharmacy (11/08/2023 4:27 PM SOLAR PROJECT COORDINATION SPECIALIST) Notes: Recent Visits Date Type Provider Dept 12/27/23 Office Visit Becca Henry FNP [facility] 11/29/23 Office Visit Becca Henry FNP [facility] 10/11/23 Office Visit Becca Henry FNP [facility] 09/13/23 Office Visit Becca Henry FNP [facility] 08/09/23 Office Visit Becca Henry FNP [facility] Showing recent visits within past 540 days with a meds authorizing provider and meeting all other requirements Future Appointments Date Type Provider Dept 02/11/24 Appointment Becca Henry FNP [facility] 07/03/24 Appointment Becca Henry FNP [facility] Showing future appointments within next 150 days with a meds authorizing provider and meeting all other requirements Justina Yadav RN [facility] 2024-01-08 14:35:38 Received denial for ophthalmology Trinidad Jean 01/08/2024 2:37 PM Trinidad Harvey Jean [facility] 2024-01-01 13:20:01 OCCandice worked 4.25.24 post visit no additional orders needed at this time Trinidad Jean 01/01/2024 1:20 PM [facility] 10:07:11 Spoke to patient and informed her that paperwork is ready to be picked up it has been placed in the front PSS folder. Patient verbalized understanding [facility] 2023-12-04 16:21:39 OCCandice worked 3.28.24 post visit no additional orders needed at this time. Trinidad Jean 12/04/2023 4:21 PM Trinidad A [facility] 2023-11-30 13:36:39 Patient dropped off Medical Release for Becca to sign. Placing in provider's box. Veronica Nunez [facility] 2023-11-20 12:17:17 Received authorization approval from [facility] for ob Trinidad Jean 11/20/2023 12:17 PM Trinidad Jean [facility] 2023-11-19 16:28:31 Medication refilled per policy: Last office visit: 10/11/23 Next office visit: 11/29/23 Requested Prescriptions Pending Prescriptions Disp Refills metFORMIN 500 mg tablet 180 tablet 0 Sig: Take 1 tablet by mouth in the morning and 1 tablet in the evening. Take with meals. Last fill date: 08/09/23 Labs: HGB A1C (%) Date Value 08/09/2023 5.9 (H) elevated glucose is consistent with your DM and A1C is at goal 5.9 Notes: Type 2 diabetes mellitus without complication, without long-term current use of insulin (primary encounter diagnosis) Comment: chronic Leigh Loving LVN [facility] 2023-11-16 07:56:44 Received authorization approval from [facility] for US Trinidad Jean 11/16/2023 7:56 AM Trinidad Jean [facility] 2023-11-12 12:53:[address] a follow up referral for this patient to see OB. Thanks Zara List of last OB visit dx Visit Diagnoses Abnormal uterine bleeding (AUB) N93.9 [facility] 2023-11-12 11:42:39 OCA worked 3.5.24 ob post visit requested US pelvis and follow up ob. Trinidad Jean 11/12/2023 11:43 AM Trinidad Jean [facility] 2023-11-08 16:25:36 Last Refilled: rosuvastatin 10 mg tablet 90 tablet 0 08/09/2023 -- No Sig: Take 1 tablet by mouth at bedtime. Sent to pharmacy as: rosuvastatin 10 mg tablet (CRESTOR) Class: eRX Route: Oral Order: [id number] Date/Time Signed: 08/09/2023 09:09 E-Prescribing Status: Receipt confirmed by pharmacy (08/09/2023 9:09 AM SOLAR PRO[employer] COORDINATION SPECIALIST) Recent Visits Date Type Provider Dept 10/11/23 Office Visit Becca Henry FNP [facility] 09/13/23 Office Visit Becca Henry FNP [facility] 08/09/23 Office Visit Becca Henry FNP [facility] Showing recent visits within past 540 days with a meds authorizing provider and meeting all other requirements Future Appointments Date Type Provider Dept 02/14/24 Appointment Becca Henry FNP [facility] Showing future appointments within next 150 days with a meds authorizing provider and meeting all other requirements R PROJECT COORDINATION SPECIALIST Jigna Estrada [facility] 2023-11-08 16:13:05 Copied from [facility] #[id number]. Topic: Clinical - Order >> Nov 08, 2023 4:12 PM Patient Senior Principal wrote: Tere Loving is a 47 year old female Patient is calling to request refill on Rx rosuvastatin 10 mg tablet and is also asking if she needs approval to attend her appointments that are scheduled for January; patient unclear on what she needs and asking for a call from clinical team. Please be advised. [phone] (home) [phone] (work) [facility] 2023-11-06 15:45:00 Images from the original note were not included. Venipuncture collection performed by clean technique on the left anticubitus. Total of 1 attempts were made. Slight pressure and a bandage/dressing were applied to the site(s). The patient experienced no complications. The following specimens were processed according to instructions and sent to [facility] laboratories LT BLUE Lt Green SST 1 RED LAV 1 PPT DK GREEN (L) DK GREEN (S)/// Fibrosure set BLUE,SST & LAV KATE DK BLUE (K2) DK BLUE (S) ACD RST BLOOD CULTURE SET BLOOD CULTURE (AFB AND FUNGUS ) VERIFYNOW Monogram TYPENEX (LAV TOP) ARM BAND ON PATIENT Z plasma preservative tube (call lab for tube)ARUP Vasoactive Intestinal Peptide (call lab for tube)ARUP FEDEX ( NIPT) URINE URINE CULTURE APTIMA URINE STOOL [facility] 2023-11-05 12:46:02 OCA worked 11/01 file. No new orders placed to be requested by OCA at this time. Danika Au 11/05/2023 12:46 PM R PROJECT COORDINATION SPECIALIST Danika Au [facility] 2023-10-31 08:19:47 Received authorization approval from [facility]. Trinidad Jean 10/31/2023 8:20 AM R PROJECT COORDINATION SPECIALIST Trinidad Jean [facility] 2023-10-22 13:37:32 Can you please put a RTC referral in for this patient to see OB. Thanks Zara Cornejo of last Ob visit dx. Visit Diagnoses Well woman exam Z01.419 Other general counseling and advice for contraceptive management Z30.09 Stress incontinence N39.3 Essential hypertension, benign I10 [facility] 2023-10-19 14:29:57 Name: Tere Loving : [birth year] DOS: 2.14.24 Specialty: ob Scheduled follow up: 1 yr. Orders placed: mammo Requesting: Auth for order placed Trinidad Jean 10/19/2023 2:30 PM R PROJECT COORDINATION SPECIALIST Trinidad Harvey Jean [facility] 2023-09-19 15:30:44 OCA worked 09.13.23 post visit Trinidad Jean 09/19/2023 3:31 PM R PROJECT COORDINATION SPECIALIST Trinidad Jean [facility] 2023-09-19 08:02:22 CHP referral submitted to Elissa Maldonado CM. R PROJECT COORDINATION SPECIALIST Tammie Mcbride LVN [facility] 2023-09-13 08:00:00 Addended by: JALEN HENRY DNP-BECCA TAVERAS on: 09/13/2023 03:16 PM Modules accepted: Orders [facility]
[2024-06-09] MEDS ORDERED: HYDROCODONE/APAP 7.5/325 MG TAB ONE (21:16)
--- NOTE | 2024-06-09 22:03 | RAD REPORT ---
EXAM:Tib Fib Left HISTORY: PAIN COMPARISON: None IMPRESSION: No fracture of the tibia or fibula identified.
--- NOTE | 2024-06-09 22:03 | RAD REPORT ---
EXAM: Hand Left 3 View HISTORY: PAIN COMPARISON: None FINDINGS: Bones: No acute fracture identified. Alignment:No significant malalignment. Degenerative changes:None significant. Other: n/a IMPRESSION: No evidence of acute osseous abnormality involving the imaged hand.
--- NOTE | 2024-06-09 22:19 | EDPHYS ---
Physician Documentation [facility] Name: Tere Loving Age: 48 yrs Sex: Female : 1975 Arrival Date: 06/09/2024 Time: 20:45 Bed 20 Private MD: ED Physician Laron Alvarado HPI: 06/09 21:43 This 48 yrs old Female presents to ER via Wheelchair with complaints of Fall kb Injury, Leg Pain. 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 States she tripped on some rocks causing her to fall. Denies head injury or loc. . NETWORK DIAGNOSTIC SUPPORT SPECIALIST: 21:35 LMP 06/09/2024, unknown rg5 Historical: - Allergies: 20:58 No Known Allergies; cm10 - PMHx: 20:58 Diabetes mellitus; Hypertensive disorder; cm10 - PSHx: 20:58 section; Cholecystectomy; cm10 - Immunization history:: Adult Immunizations up to date. - Infectious Disease History:: Denies. - Immunization history: Last tetanus immunization: - up to date. - Social history:: Smoking status: Patient denies any tobacco usage or history of. ROS: 21:42 Constitutional: As per HPI kb Exam: 21:42 Constitutional: This is a well developed, well nourished patient who is awake, alert, kb and in no acute distress. Head/Face: Normocephalic, atraumatic. ENT: Moist Mucous membranes Cardiovascular: Regular rate Respiratory: Respirations even and unlabored. No increased work of breathing. Talking in full sentences Abdomen/GI: Soft, non-tender. No distention Neuro: Awake and alert, GCS 15, oriented to person, place, time, and situation. Moves all extremities. Normal gait. 21:42 Musculoskeletal/extremity: Extremities: grossly normal except: noted in the lateral aspect of left calf: abrasion, ecchymosis, pain, noted in the left ring finger: ecchymosis, pain, swelling, tenderness, ROM: intact in all extremities, Circulation is intact in all extremities. Sensation intact. 21:42 Skin: injury, abrasion(s), small abrasion noted, of the lateral aspect of left calf, Vital Signs: 20:57 BP 139 / 77; Pulse 73; Resp 16; Temp 98.5; Pulse Ox 98% on R/A; Weight 89.81 kg; Height cm10 5 ft. 0 in. ; Pain 8/10; 21:23 BP 139 / 68; Pulse 98; Resp 16; Temp 98.2(O); Pulse Ox 97% on R/A; Pain 8/10; rg5 21:53 BP 123 / 70; Pulse 94; Resp 17; Pulse Ox 97% on R/A; rg5 20:57 Body Mass Index 38.67 (89.81 kg, 152.4 cm) cm10 20:57 Pain Scale: Adult cm10 21:23 Pain Scale: Adult rg5 Show Low Coma Score: 21:23 Eye Response: spontaneous(4). Motor Response: obeys commands(6). Verbal Response: rg5 oriented(5). Total: 15. Trauma Score (Adult): 21:32 Eye Response: spontaneous(1); Verbal Response: oriented(1); Motor Response: obeys rg5 commands(2); Systolic BP: > 89 mm Hg(4); Respiratory Rate: 10 to 29 per min(4); Show Low Score: 15; Trauma Score: 12 MDM: 20:53 Patient medically screened. kb 21:43 Differential diagnosis: abrasion, contusion, fracture. Data reviewed: vital signs, nurses notes. 22:18 Counseling: I had a detailed discussion with the patient and/or guardian regarding the kb historical points, exam findings, and any diagnostic results supporting the discharge/admit diagnosis, radiology results, the need for outpatient follow up, a family practitioner, to return to the emergency department if symptoms worsen or persist or if there are any questions or concerns that arise at home. 06/09 20:56 Order name: Hand Left 3 View XRAY; Complete Time: 22:07 kb 06/09 20:56 Order name: Tib Fib Left XRAY; Complete Time: 22:07 kb 06/09 22:18 Order name: Finger Splint; Complete Time: 22:27 kb 06/09 22:18 Order name: Ice pack; Complete Time: 22:27 kb Administered Medications: 21:23 Drug: Hydrocodone-Acetaminophen PO (7.5 mg-325 mg) 1 tabs PO once Route: PO; rg5 21:39 Follow up: Response: No adverse reaction; Pain is decreased rg5 Disposition: 23:10 Co-signature as Attending Physician, Laron Alvarado MD I reviewed the patient's care rt provided by the Advanced Practice Provider and agree with the diagnosis and treatment plan. Disposition Summary: 06/09/24 22:18 Discharge Ordered Notes: Location: Home Condition: Stable kb Diagnosis - Contusion of left lower leg kb - Other sprain of left ring finger kb Followup: kb - With: Emergency Department - When: As needed - Reason: Worsening of condition Followup: kb - With: Private Physician - When: 2 - 3 days - Reason: Recheck today's complaints, Continuance of care, Re-evaluation by your physician Discharge Instructions: - Discharge Summary Sheet kb - Contusion, [id number] kb - Finger Sprain, Adult, Fmfq-my-[id number] kb - Discharge Summary Sheet rv1 Forms: - Medication Reconciliation Form kb - Antibiotic Education kb - Prescription Opioid Use kb - Patient Portal Instructions kb - Leadership Thank You Letter kb - School release form rv1 - Family Work Release rv1 Signatures: Dispatcher [employer] EDMS Kierra Julian, INSTRUMENT ENGINEER-C INSTRUMENT ENGINEER-Ckb Laron Alvarado MD MD rt Lynnette Mcmullen, RN RN cm10 Abdoulaye Villalba, RN RN rg5 Corrections: (The following items were deleted from the chart) 20:56 20:56 Tib Fib Left+RAD.RAD.BRZ ordered. EDHI EDHI
--- NOTE | 2024-06-09 22:19 | ER ---
Nurse's Notes [facility] Name: Tere Loving Age: 48 yrs Sex: Female : 1975 Arrival Date: 06/09/2024 Time: 20:45 Bed 20 Private MD: Diagnosis: Contusion of left lower leg;Other sprain of left ring finger Presentation: 06/09 20:57 Chief complaint: Patient states: Slip and fall today. Pt complaining of pain to left cm10 lower leg and pain to the 4th digit on left hand. Coronavirus screen: Client denies travel out of the [place] in the last 14 days. Ebola Screen: Patient denies travel to an Ebola-affected area in the 21 days before illness onset. No symptoms or risks identified at this time. Initial Sepsis Screen: Does the patient meet any 2 criteria? No. Patient's initial sepsis screen is negative. Does the patient have a suspected source of infection? No. Patient's initial sepsis screen is negative. Risk Assessment: Do you want to hurt yourself or someone else? Patient reports no desire to harm self or others. Onset of symptoms was June 09, 2024. 20:57 Method Of Arrival: Wheelchair cm10 20:57 Acuity: DONOVAN 4 cm10 21:33 Care prior to arrival: None. Mechanism of Injury: Fall from standing position. Trauma rg5 event details: Injury occurred in the [facility], Injury occurred: at home. Injury occurred: June 09, 2024 Injury occurred at: 20:00. Activity prior to arrival: None. Triage Assessment: 20:58 General: Appears in no apparent distress. comfortable, Behavior is calm, cooperative. cm10 Neuro: No deficits noted. Level of Consciousness is awake, alert, obeys commands, Oriented to person, place, time, situation, Appropriate for age. Respiratory: No deficits noted. Airway is patent Respiratory effort is even, unlabored, Respiratory pattern is regular, symmetrical. 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 - Infectious Disease History:: Denies. - Immunization history: Last tetanus immunization: - up to date. - Social history:: Smoking status: Patient denies any tobacco usage or history of. Screenin:23 [facility] ED Fall Risk Assessment (Adult) History of falling in the last 3 months, rg5 including since admission No falls in past 3 months (0 pts) Confusion or Disorientation No (0 pts) Intoxicated or Sedated No (0 pts) Impaired Gait No (0 pts) Mobility Assist Device Used No (0 pt) Altered Elimination No (0 pt) Score/Fall Risk Level 0 - 2 = Low Risk Oriented to surroundings, Maintained a safe environment, Hourly rounding (assess needs \T\ fall precautionary measures) done. Abuse screen: Denies threats or abuse. Nutritional screening: No deficits noted. Tuberculosis screening: No symptoms or risk factors identified. Primary Survey: 21:32 NO uncontrolled hemorrhage observed. A: The client is awake and alert. The airway is rg5 patent. Breathing/Chest: Spontaneous respiratory effort, equal unlabored respirations, breath sounds clear bilaterally, regular pattern, symmetrical chest rise and fall. Circulation: No external hemorrhage present. Regular and strong central pulse, skin warm/dry/normal color. Disability Pupils are equal, round, reactive to light and accommodation. Client is alert. Exposure/Environment: All clothing and personal items were removed. Forensic evidence collection is not deemed to be indicated at this time. Items placed in patient belonging bag. There is no evidence of uncontrolled external bleeding. 21:34 Reassessment Breathing: Spontaneous respiratory effort, equal unlabored respirations, rg5 breath sounds clear bilaterally, regular pattern with symmetrical chest rise and fall. Circulation: No external hemorrhage noted. Regular and strong central pulse, skin warm/dry/normal color. Disability: Pupils Pupils are equal, round, reactive to light and accomodation. Assessment: 21:23 General: Appears in no apparent distress. Behavior is calm, cooperative, appropriate rg5 for age. Pain: Complains of pain in palmar aspect of middle phalanx of left ring finger Pain currently is 7 out of 10 on a pain scale. Quality of pain is described as aching, Pain began 2 hours ago. Neuro: Level of Consciousness is awake, alert, obeys commands, Oriented to person, place, time. Cardiovascular: Patient's skin is warm and dry. Rhythm is sinus rhythm. Respiratory: Airway is patent Trachea midline Respiratory effort is even, unlabored, Respiratory pattern is regular, symmetrical. GI: Abdomen is round non-distended, Bowel sounds present X 4 quads. : No signs and/or symptoms were reported regarding the genitourinary system. EENT: No deficits noted. Derm: Skin is intact, is healthy with good turgor, Skin is dry, Skin is normal, Skin temperature is warm. Musculoskeletal: Reports pain in left leg Pain is 8 out of 10 on a pain scale. Injury Description: Abrasion sustained to left leg. 22:11 Reassessment: Patient and/or family updated on plan of care and expected duration. Pain rg5 level reassessed. Patient is alert, oriented x 3, equal unlabored respirations, skin warm/dry/pink. Patient states feeling better. Patient states symptoms have improved. Vital Signs: 20:57 BP 139 / 77; Pulse 73; Resp 16; Temp 98.5; Pulse Ox 98% on R/A; Weight 89.81 kg; Height cm10 5 ft. 0 in. ; Pain 8/10; 21:23 BP 139 / 68; Pulse 98; Resp 16; Temp 98.2(O); Pulse Ox 97% on R/A; Pain 8/10; rg5 21:53 BP 123 / 70; Pulse 94; Resp 17; Pulse Ox 97% on R/A; rg5 20:57 Body Mass Index 38.67 (89.81 kg, 152.4 cm) cm10 20:57 Pain Scale: Adult cm10 21:23 Pain Scale: Adult rg5 Boomer Coma Score: 21:23 Eye Response: spontaneous(4). Motor Response: obeys commands(6). Verbal Response: rg5 oriented(5). Total: 15. Trauma Score (Adult): 21:32 Eye Response: spontaneous(1); Verbal Response: oriented(1); Motor Response: obeys rg5 commands(2); Systolic BP: > 89 mm Hg(4); Respiratory Rate: 10 to 29 per min(4); Agusto Score: 15; Trauma Score: 12 ED Course: 20:52 Patient arrived in ED. gm2 20:53 Kierra Julian [facility]C [facility] kb 20:53 Laron Alvarado MD is Attending Physician. kb 20:57 Abdoulaye Villalba RN is Primary Nurse. rg5 20:58 Triage completed. cm10 20:58 Arm band placed on Patient placed in an exam room, on a stretcher. cm10 21:23 Patient has correct armband on for positive identification. Bed in low position. Call rg5 light in reach. Side rails up X 1. Door closed. Noise minimized. Warm blanket given. Verbal reassurance given. 21:23 No provider procedures requiring assistance completed. Patient did not have IV access rg5 during this emergency room visit. 21:34 Patient maintains SpO2 saturation greater than 95% on room air. rg5 21:34 Thermoregulation: warm blanket given to patient. rg5 21:53 Hand Left 3 View XRAY In Process Unspecified. EDMS 21:53 Tib Fib Left XRAY In Process Unspecified. EDMS 22:13 Provided Education on: post er care. rg5 Administered Medications: 21:23 Drug: Hydrocodone-Acetaminophen PO (7.5 mg-325 mg) 1 tabs PO once Route: PO; rg5 21:39 Follow up: Response: No adverse reaction; Pain is decreased rg5 Medication: 21:23 VIS not applicable for this client. rg5 Intake: 21:32 PO: 150ml; Total: 150ml. rg5 Outcome: 21:34 Patient's length of stay was not longer than 2 hours. rg5 22:18 Discharge ordered by . kb 22:27 Discharged to home via wheelchair, rg5 22:27 Condition: stable 22:27 Discharge instructions given to patient, 22:28 Patient left the ED. rg5 Signatures: Dispatcher [employer] Kierra Bland, JALEN-C GAS BURNER OPERATOR-Lynnette Smith, RN RN 10 Talisha Cohen 2 Abdoulaye Villalba, UDAY RN rg5
[2024-06-10 00:21] VITALS: TEMP 98.2; O2SAT 97
[2024-06-10 00:22] VITALS: BP 123/70
== END 2024-06-09 22:28 | disposition home or self-care (01) ==
LOC: ER 20:45
DX: S63.695A Other sprain of left ring finger, initial encounter (principal); S80.12XA Contusion of left lower leg, initial encounter
CPT/HCPCS: 99283